=== PATIENT | female | born 1965 | race African-American/Black ===

== ENCOUNTER 2024-02-09 12:46 | Outpatient (REF) | payer BC, MEDICAID, SELFPAY ==
--- OUTSIDE RECORDS SUMMARY | 2024-02-09 12:58 | XMS_ITS | Continuity of Care Document ---
Author Organization [facility] ter Address [address] [place] [id number]- Care Team Providers Care Geotechnical Laboratory Technician Name Role Phone Brianne PERSON, Suresh Primary Care Physician Encounter [facility] [place] Date(s): 01/25/24 - 01/27/[address] [address]- Encounter Diagnosis Dizziness(Final) - 01/26/24 Discharge Disposition: A-D/C Home Attending Physician: Edinson Owens MD Admitting Physician: Melchor Salgado MD Referring Physician: Not on Staff, Referring MD Encounter Type: Disch Obv Allergies, Adverse Reactions, Alerts No Known Allergies Medications aspirin 81 mg oral delayed release tablet 81 mg, By Mouth, Daily, Refills 0, Maintenance, 01/27/24 8:52:00 AM EST, Partial fill upon patient request if the prescription is for a schedule II opioid drug. Start Date: 01/27/24 Status: Ordered Repeat number: 1 cloNIDine 0.1 mg oral tablet TAKE 1 TABLET BY MOUTH TWICE A DAY NEEDED FOR ANXIETY Start Date: 01/26/24 Status: Ordered Repeat number: 1 Compression Stockings See Instructions, # 2 pair, Refills 3, Tot. Refills 3, Maintenance, surgical, knee length 20-30 mm Hg, 01/05/17 9:52:28 AM EST, Compound Start Date: 01/05/17 Status: Ordered Quantity: 2.0 Unit: pair Repeat number: 4 Compression Stockings See Instructions, # 1 pair, Maintenance, rubber band surgical, thigh high length 20-30 mm Hg, 07/19/14 10:25:24 AM EDT, Compound Start Date: 07/19/14 Status: Ordered Quantity: 1.0 Unit: pair Repeat number: 1 Driminate 50 mg oral tablet CHEW 1 TABLET 4 TIMES A DAY IF NEEDED FOR DIZZINESS Start Date: 01/26/24 Status: Ordered Repeat number: 1 lisinopril 5 mg oral tablet TAKE 1 TABLET BY MOUTH 1 TIME EACH DAY. Start Date: 01/26/24 Status: Ordered Repeat number: 1 meclizine 25 mg oral tablet 1 tablet = 25 mg, By Mouth, 3 times a day, PRN for dizziness, # 30 tablet, 0 Refills, Maintenance, 01/27/24 8:51:00 AM EST, Tablet, Partial fill upon patient request if the prescription is for a schedule II opioid drug. Start Date: 01/27/24 Status: Ordered Quantity: 30.0 Unit: tablet Repeat number: 1 Motrin 800 mg oral tablet 1 tablet = 800 mg, By Mouth, 3 times a day, # 30 tablet, 0 Refills, Maintenance, 10/14/10 4:51:24 PMEDT, Tablet, [id number] Start Date: 10/14/10 Status: Ordered Quantity: 30.0 Unit: tablet Repeat number: 1 olanzapine 15 mg oral tablet TAKE 1 TABLET BY MOUTH EVERYDAY AT BEDTIME Start Date: 01/26/24 Status: Ordered Repeat number: 1 PT eval and treat for vestibular rehab PT eval and treat for vestibular rehab, See Instructions, # 1 each, Refills 0, Tot. Refills 0, Maintenance, PT eval and treat for vestibular rehab, 01/27/24 8:51:00 AM EST, Compound Start Date: 01/27/24 Status: Ordered Quantity: 1.0 Unit: each Repeat number: 1 sertraline 50 mg oral tablet TAKE 1 TABLET BY MOUTH ONCE A DAY TAKE 1-TAB DAILY BEGINNING ON 01/05/24 Start Date: 01/26/24 Status: Ordered Repeat number: 1 traZODone 50 mg oral tablet TAKE 1 TABLET BY MOUTH EVERY DAY Start Date: 01/26/24 Status: Ordered Repeat number: 1 Problem List Condition Confirmation Course Effective Dates Status Health [facility] Informant Anxiety Confirmed Active Depression Confirmed Active Dysmenorrhea Confirmed Active EDC 02/13/06 Confirmed Active Encounter for screening colonoscopy Confirmed Active Results Radiology Reports * Exam Date Time Procedure Performing Provider Status 01/27/24 5:20 AM MRI Brain W/O Contrast Earlene Crawley; Auth (Verified) Notes: (MRI Brain W/O Contrast) Reason For Exam: dizziness, dysmetria;Other: RESULT: MRI Brain W/O Contrast MRI Brain W/O Contrast INDICATION / CLINICAL QUESTION: dizziness, dysmetria; Clinical Question(s): Infarction; Order Comment: Please see Reference Text for complete list of contraindications Infarction TECHNIQUE: Sagittal T1, axial T2, axial FLAIR, axial gradient echo weighted images and axial diffusion weighted images. COMPARISON: CT of head on 01/25/2024 FINDINGS: The ventricles, cistern and sulci are within normal limits. No hydrocephalus is seen. There is no intracranial hemorrhage, tumor or acute infarct. There is a 5 mm area of hyperintense T2/FLAIR signals in the left posterior frontal white matter. Ill-defined patchy areas of subtly increased T2/FLAIR signals are seen in the periventricular white matters bilaterally. The findings are nonspecific. Differential diagnosis are extensive including demyelinating disease, chronic small vessel ischemic disease, infectious or inflammatory processes, etc. Please correlate clinically. Followup is suggested. There are normal flow voids in the major intracranial vessels. The visualized paranasal sinuses are clear. IMPRESSION: No acute pathology is seen in the brain parenchyma. Mild bilateral white matter disease is nonspecific. Differential diagnosis are extensive. Please correlate clinically. Followup is suggested. WSN: [id number] Ordering Physician: James Mclean Dictated By: Minh Perales MD Dictated Date/Time: 01/27/24 7:50 am Reviewed By: Minh Perales MD Signed By: Minh Perales MD Signed Date/Time: 01/27/24 7:50 am Transcribed By: MORENO Transcribed Date/Time: 01/27/24 7:50 am * Exam Date Time Procedure Performing Provider Status 01/25/24 9:[address] Angio Neck Sheyla Ellis [facility] (Verified) Notes: (CT Angio Neck) Reason For Exam: Aneurysm, neck vessel(s);Other: RESULT: CT Angio Neck CT Angio Head, CT Angio Neck Hx of Present Illness: 3 weeks of HOFFMAN diziness, bilat ear pain and intermittent blurred vision. Patient denies fevers, cough, endorsing congestion.; Reason: Other:; Neuro deficit, acute, stroke suspected; Clinical Question(s): Other:; Hematoma Aneurysm / Other: TECHNIQUE: CT angiogram of the head and neck was performed after bolus administration of intravenous contrast. 100 mL of Isovue 300 was administered intravenously. Coronal and sagittal MIP reformatted images were obtained. Additional 3-D images were created on a separate workstation under concurrent supervision by the attending radiologist. All stenoses are measured using NASCET criteria. Weight-based protocol using automatic tube modulation was used to optimize exposure parameters. RADIATION DOSE PARAMETERS: CTDIvol Body: 8.90 mGy, DLP Body: 443 mGy*cm. CTDIvol Head: 48.10 mGy, DLP Head: 773 mGy*cm. COMPARISON: Noncontrast CT head performed concurrently. FINDINGS: CTA OF THE NECK: Arch: There is a three vessel aortic arch. The origins of the supra aortic vessels are patent. Right carotid system: The common carotid and cervical internal carotid arteries are patent. No stenosis (0%) by NASCET criteria. Left carotid system: The left common carotid arteries are patent. There is soft plaque at the posterior margin of the left carotid bulb and proximal left ICA measuring up to 3 mm in thickness. No significant associated stenosis. Stenosis of the distal left ICA is estimated at 40% by NASCET criteria. There is a left-dominant vertebral artery system. Right vertebral: Patent. Left vertebral: Patent. Other: Soft tissues and bones: No evidence of lymphadenopathy or mass. A 9 mm left thyroid gland nodule isnoted, which falls below size criteria for thyroid sonography recommendation. Minimal dependent atelectasis. No acute bony abnormality. 8 mm sclerotic focus within the right side of C7 which probably represents a bone island. CTA OF THE HEAD: Anterior circulation: The intracranial internal carotid arteries are patent. Calcifications are present, and there is mild stenosis of the ophthalmic segment of the left ICA. Posterior communicating arteries are present. The ICA termini are maintained. The A1 and A2 segments of the anterior cerebral arteries are patent. The M1 segments of the middle cerebral arteries and M2 branch origins are patent. Posterior circulation: Bilateral intracranial vertebral arteries, the basilar artery, and bilateralsuperior cerebellar and posterior cerebral artery branches are patent. Near type right posterior cerebral artery. Veins: Major dural venous sinuses are patent. Other: Soft tissues and bones: No midline shift or effacement of the basal cisterns. No space-occupying hemorrhage. No acute territorial loss of fernandez-white matter differentiation. Orbits are unremarkable. No significant opacification in the paranasal sinuses or mastoid air cells. IMPRESSION: 1. No acute intracranial large vessel occlusion. 2. Atherosclerotic changes of the extracranial left ICA as described above. A preliminary report was issued to the emergency room by the [facility] service 01/25/2024 at 10:00 PM. WSN: [id number] Ordering Physician: James Mclean Dictated By: Star Tobias MD Dictated Date/Time: 01/26/24 12:01 p Reviewed By: Star Tobias MD Signed By: Star Tobias MD Signed Date/Time: 01/26/24 12:01 pm Transcribed By: MORENO Transcribed Date/Time: 01/26/24 10:55 am * Exam Date Time Procedure Performing Provider Status 01/25/24 9:[address] Angio Head Sheyla Ellis [facility] (Verified) Notes: (CT Angio Head) Reason For Exam: Neuro deficit, acute, stroke suspected;Other: RESULT: CT Angio Head CT Angio Head, CT Angio Neck Hx of Present Illness: 3 weeks of HOFFMAN diziness, bilat ear pain and intermittent blurred vision. Patient denies fevers, cough, endorsing congestion.; Reason: Other:; Neuro deficit, acute, stroke suspected; Clinical Question(s): Other:; Hematoma Aneurysm / Other: TECHNIQUE: CT angiogram of the head and neck was performed after bolus administration of intravenous contrast. 100 mL of Isovue 300 was administered intravenously. Coronal and sagittal MIP reformatted images were obtained. Additional 3-D images were created on a separate workstation under concurrent supervision by the attending radiologist. All stenoses are measured using NASCET criteria. Weight-based protocol using automatic tube modulation was used to optimize exposure parameters. RADIATION DOSE PARAMETERS: CTDIvol Body: 8.90 mGy, DLP Body: 443 mGy*cm. CTDIvol Head: 48.10 mGy, DLP Head: 773 mGy*cm. COMPARISON: Noncontrast CT head performed concurrently. FINDINGS: CTA OF THE NECK: Arch: There is a three vessel aortic arch. The origins of the supra aortic vessels are patent. Right carotid system: The common carotid and cervical internal carotid arteries are patent. No stenosis (0%) by NASCET criteria. Left carotid system: The left common carotid arteries are patent. There is soft plaque at the posterior margin of the left carotid bulb and proximal left ICA measuring up to 3 mm in thickness. No significant associated stenosis. Stenosis of the distal left ICA is estimated at 40% by NASCET criteria. There is a left-dominant vertebral artery system. Right vertebral: Patent. Left vertebral: Patent. Other: Soft tissues and bones: No evidence of lymphadenopathy or mass. A 9 mm left thyroid gland nodule isnoted, which falls below size criteria for thyroid sonography recommendation. Minimal dependent atelectasis. No acute bony abnormality. 8 mm sclerotic focus within the right side of C7 which probably represents a bone island. CTA OF THE HEAD: Anterior circulation: The intracranial internal carotid arteries are patent. Calcifications are present, and there is mild stenosis of the ophthalmic segment of the left ICA. Posterior communicating arteries are present. The ICA termini are maintained. The A1 and A2 segments of the anterior cerebral arteries are patent. The M1 segments of the middle cerebral arteries and M2 branch origins are patent. Posterior circulation: Bilateral intracranial vertebral arteries, the basilar artery, and bilateralsuperior cerebellar and posterior cerebral artery branches are patent. Near type right posterior cerebral artery. Veins: Major dural venous sinuses are patent. Other: Soft tissues and bones: No midline shift or effacement of the basal cisterns. No space-occupying hemorrhage. No acute territorial loss of fernandez-white matter differentiation. Orbits are unremarkable. No significant opacification in the paranasal sinuses or mastoid air cells. IMPRESSION: 1. No acute intracranial large vessel occlusion. 2. Atherosclerotic changes of the extracranial left ICA as described above. A preliminary report was issued to the emergency room by the [facility] service 01/25/2024 at 10:00 PM. WSN: [id number] Ordering Physician: James Mclean Dictated By: Star Tobias MD Dictated Date/Time: 01/26/24 12:01 p Reviewed By: Star Tobias MD Signed By: Star Tobias MD Signed Date/Time: 01/26/24 12:01 pm Transcribed By: MORENO Transcribed Date/Time: 01/26/24 10:55 am * Exam Date Time Procedure Performing Provider Status 01/25/24 9:[address] Head/Brain W/O Contrast Sheyla Ellis; Katja (Verified) Notes: (CT Head/Brain W/O Contrast) Reason For Exam: Neuro deficit, acute, stroke suspected;Other: RESULT: CT Head/Brain W/O Contrast CT Head/Brain W/O Contrast INDICATION: Hx of Present Illness: 3 weeks of HOFFMAN dizziness, bilat ear pain and intermittent blurredvision. Patient denies fevers, cough, endorsing congestion.; Reason: Other:; Neuro deficit, acute, stroke suspected; Clinical Question(s): Other:; Hematoma Infarction TECHNIQUE: Noncontrast head CT using axial technique and reconstructed in axial and coronal planes.Iterative reconstruction techniques are used to optimize dose and image quality. CTDIvol Body: 8.90 mGy, DLP Body: 443 mGy*cm. CTDIvol Head: 48.10 mGy, DLP Head: 773 mGy*cm. COMPARISON: CT head 09/04/2023 FINDINGS: Embroidery Cutter view findings, lines and tubes: None. BRAIN AND EXTRA-AXIAL SPACES: No parenchymal hemorrhage, midline shift, or mass effect. Fernandez-white matter differentiation is wellpreserved. No acute infarct. Negative insular ribbon sign. Atherosclerotic vascular calcification of the carotid arteries but negative hyperdense vessel sign. Ventricles, sulci, and basilar cisterns are normal. No white matter lesions. No subarachnoid hemorrhage. No subdural or epidural collection. CALVARIUM, SKULL BASE, AND SOFT TISSUES: No fractures or suspicious bony lesions. The paranasal sinuses and mastoid air cells are clear. Visualized orbits and globes are intact. The extracranial soft tissues are unremarkable. IMPRESSION: No acute intracranial pathology. I have personally reviewed the images and I agree with this report. WSN: [id number] Ordering Physician: James Mclean Dictated By: Cady Mello MD Dictated Date/Time: 01/25/24 10:01 p Reviewed By: Elvira Sexton MD Signed By: Elvira Sexton MD Signed Date/Time: 01/25/24 10:06 pm Transcribed By: MORENO Transcribed Date/Time: 01/25/24 9:50 pm Vital Signs Most recent to oldest [Reference Range]: 1 2 3 Height 158 cm (01/27/24 9:07 AM) 158 cm (01/27/24 3:44 AM) 158 cm (01/27/24 12:01 AM) Weight 59.5 kg (01/26/24 5:36 AM) 60 kg (01/25/24 10:17 PM) 60 kg (01/25/24 4:37 PM) Oxygen Saturation [94-100 %] 96 % (01/27/24 9:07 AM) 97 % (01/27/24 3:44 AM) 100 % (01/27/24 12:01 AM) Pulse Rate [55-90 bpm] 70 bpm (01/27/24 9:07 AM) 67 bpm (01/27/24 3:44 AM) 83 bpm (01/27/24 12:01 AM) Body Mass Index [18.5-24.99 kg/m2] 23.83 kg/m2 (01/26/24 5:36 AM) 24.03 kg/m2 (01/25/24 10:17 PM) 24.03 kg/m2 (01/25/24 4:37 PM) Blood Pressure [90-138/55-84 mm Hg] 92/63mm Hg (01/27/24 9:07 AM) 110/67mm Hg (01/27/24 3:44 AM) 106/74mm Hg (01/27/24 12:01 AM) Respiratory Rate [16-30 br/min] 19 br/min (01/27/24 9:07 AM) 18 br/min (01/27/24 3:44 AM) 18 br/min (01/27/24 12:01 AM) Temperature [96.8-100.4 DegF] 97.8 DegF (01/27/24 9:07 AM) 97.7 DegF (01/27/24 3:44 AM) 98.2 DegF (01/27/24 12:01 AM) Mode of Delivery (Oxygen) Room air (01/27/24 9:07 AM) Room air (01/27/24 3:44 AM) Room air (01/27/24 12:01 AM) Blood pressure sites Arm, left (01/27/24 9:07 AM) Arm, left (01/27/24 3:44 AM) Arm, left (01/27/24 12:01 AM) Temperature Route Oral (01/27/24 9:07 AM) Oral (01/27/24 3:44 AM) Oral (01/27/24 12:01 AM) Dry Weight 60 kg (01/25/24 10:17 PM) 60 kg (01/25/24 4:37 PM) Weight Obtained Via Standing scale (01/26/24 5:36 AM) Patient/family stated (01/25/24 4:37 PM) Dry Weight Obtained Via Patient/family s tated (01/25/24 4:37 PM) Social History Social History Type Response Smoking Status Never smoker entered on: 03/16/17 Sex Sex Representation Female (finding) Admission evaluation note * Russell PERSON, Dionte: PERFORM, MODIFY, MODIFY Event Display: Admission Note Authored Date: [id number] Patient: ??TALI DILLON ? Age:??58 Years?Sex:??Female?:??1965?? Chief Complaint/Reason for Consultation Persistent dizziness History of Present Illness 58-year-old female past medical history of lower extremity varicose veins, auditory hallucinations,anxiety, depression, presents to the ED today for several weeks of frontal headache, persistent dizziness, blurry vision. ?? Evaluated patient at bedside. ??Patient states that she had an episode like this couple of months ago however did not get evaluated.?? She denies history of BPPV, head trauma, dizziness exacerbation with movement or activity.?? Along with this she is complaining of blurry vision without visual losses which comes and goes.?? There is associated fullness sensation in her ears intermittently.?? In the ED patient found to have dysmetria based on abnormal [id number] test bilaterally - although exhibits mild, along with gait instability with tandem gait per previous provider, otherwise no otherfocal deficits.?? She states that she has had repeated episodes over the last several months however the current one has been lasting for about 2 to 3 weeks. ?? Condition patient was afebrile, blood pressure 140/88, saturation 97 on room air. CBC unremarkable, borderline hemoglobin 12.5, Coags workup normal. Electrolytes within normal range. TSH normal. ?? CT head without contrast was obtained which shows no acute intracranial pathology.?? Did show atherosclerotic vascular calcification of the carotid arteries but negative hyperdense vessel sign. ?? Patient is being admitted for??stroke rule out.?? Review of Systems A full review of systems was completed and is otherwise negative except as mentioned in history of present illness. Objective Measurements?? Height: 158 cm (01/25/24) Weight: 60 kg (01/25/24) Dry Weight: 60 kg (01/25/24) Body Mass Index: 24.03 kg/m2 (01/25/24) ? Vital Signs?? Temperature: 98.4 DegF (01/25/24 17:31:00) Temperature Route: Oral (01/25/24 17:31:00) Pulse Rate: 74 bpm (01/25/24 22:17:00) Pulse Rate, Lyin bpm (01/25/24 17:31:00) Systolic Blood Pressure, Lyin mm Hg (01/25/24 17:31:00) Diastolic Blood Pressure, Lyin mm Hg (01/25/24:31:00) Pulse Rate, Sittin bpm (01/25/24 17:31:00) Systolic Blood Pressure, Sittin mm Hg (01/25/24 17:31:00) Diastolic Blood Pressure, Sittin mm Hg (01/25/24:31:00) Pulse Rate, Standin bpm (01/25/24 17:31:00) Systolic Blood Pressure, Standin mm Hg (01/25/24 17:31:00) Diastolic Blood Pressure, Standin mm Hg (01/25/24 17:31:00) Respiratory Rate: 16 br/min (01/25/24 22:17:00) Systolic Blood Pressure:??155 mm Hg??High (01/25/24 22:17:00) Diastolic Blood Pressure:??99 mm Hg??High (01/25/24 22:17:00) Blood pressure sites: Arm, left (01/25/24 22:17:00) Mean Arterial Pressure: 118 mm Hg (01/25/24 22:17:00) Pulse Pressure: 56 mm Hg (01/25/24 22:17:00) Oxygen Saturation: 97 % (01/25/24 22:17:00) Mode of Delivery (Oxygen): Room air (01/25/24 22:17:00) Early Warning Score: 0 (01/26/24 00:29:26) ? Physical Exam Constitutional: Alert, in no distress. Mental Status: Oriented to person, place and time. Respiratory: Clear to auscultation. No wheezing,?? Cardiovascular: S1 S2 regular. No murmurs, Gastrointestinal: Abdomen soft, non-tender, non-distended.?? Genitourinary: No costovertebral angle tenderness. Neurologic: abnormal??finger nose test, otherwise no focal deficit Skin: No rashes or lesions. No petechiae or purpura.?? 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 Assessment:??58-year-old female past medical history of lower extremity varicose veins,??dysmenorrhea no longer on therapy,?auditory hallucinations, anxiety, depression, presents to the ED today for several weeks of frontal headache, persistent dizziness, blurry vision. Pt being admitted for stroke rule out.? Dizziness (R42) ?Associated with??Cerebellar dysmetria (R27.8) Stroke rule out ? Patient is providing??about 6 to 7 months of intermittent??dizziness Which has not worsened over the last couple of months, however this??recent episode lasting for about 2 to 3 weeks She endorses??bilateral tinnitus,??frontal headache, blurry visions??which are all intermittent. CT??head and neck without any acute pathology ?? Plan: N.P.o. till speech evaluation MRI brain without gadolinium conveyor monitor for now to rule out??cardiac arrhythmias Neurochecks every 4 hourly Follow-up on A1c and lipid panel Initiating aspirin 81 for now,??based on??further results??consider statin therapy Given no bleed on CT, will??proceed with DVT prophylaxis ?? Depression (F32.A) ?Associated with??Anxiety (F41.9),??Auditory hallucination (R44.0) ? Patient has an outpatient psychiatrist Venlafaxine was recently switched to sertraline no SI/HI ?? Plan Continue with home meds, which includes clonidine 0.1 Mg??twice daily as needed for anxiety, olanzapine 15 Mg daily at bedtime,??trazodone 50 Mg daily at bedtime for insomnia, sertraline 50 Mg daily MRI as mentioned above to make sure there is no other causes contributing towards auditory elucidation? Hypertension (I10):??Continue home lisinopril 5 Mg ?? VTE Prophylaxis:??lovenox ?VTE Prophylaxis Assessment:??VTE Prophylaxis Ordered ?? Discharge Planning:??1-2 day ?? Ongoing Medical Necessity:??MRI brain ?? Code Status:??Full ?Order Code Status:??Code Status Ordered ? Patient has been??seen and discussed with Dr. Galvez ?? Dr. Dionte Wells Internal Medicine PGY2 [employer] ?? Please note:??[employer] services were used to dictate??the above note.?I apologize in advance for any??typos and miscommunications.?? Please reach out to me??for clarification.? Histories Allergies Allergies ?(Active and Proposed Allergies Only) NKA? (Severity: Unknown severity, Onset: Unknown) ? Past Medical History/Problem List Active Problems(5) Anxiety Depression Dysmenorrhea Encounter for screening colonoscopy ??EDC ??02/13/06 ? Past Surgical History Colonoscopy: 07/14/18 ? Social History Tobacco Details:??Never smoker ? Family History Mother: Hypertension Father: Asthma ? Medications Home Medications Clonidine (cloNIDine 0.1 mg oral tablet)?TAKE 1 TABLET BY MOUTH TWICE A DAY NEEDED FOR ANXIETY DimenhyDRINATE (Driminate 50 mg oral tablet)?CHEW 1 TABLET 4 TIMES A DAY IF NEEDED FOR DIZZINESS Durable Medical Equipment (Compression Stockings)?See Instructions?rubber band surgical, thigh high length 20-30 mm Hg Durable Medical Equipment (Compression Stockings)?See Instructions?surgical, knee length 20-30 mm Hg Ibuprofen (Motrin 800 mg oral tablet)?1?tab(s)?800?Milligram?By Mouth?3 times a day Lisinopril (lisinopril 5 mg oral tablet)?TAKE 1 TABLET BY MOUTH 1 TIME EACH DAY. Meclizine (meclizine 25 mg oral tablet, chewable)?CHEW 1 TABLET (25 MG TOTAL) 3 (THREE) TIMES A DAY IF NEEDED FOR DIZZINESS. Olanzapine (olanzapine 15 mg oral tablet)?TAKE 1 TABLET BY MOUTH EVERYDAY AT BEDTIME Sertraline (sertraline 50 mg oral tablet)?TAKE 1 TABLET BY MOUTH ONCE A DAY TAKE 1-TAB DAILY BEGINNING ON 01/05/24 Trazodone (traZODone 50 mg oral tablet)?TAKE 1 TABLET BY MOUTH EVERY DAY ? Results Recent Labs BLOOD COUNT & DIFF WBC 5.5 k/mm3 ()?? 01/25/2024 17:13 RBC 4.46 m/mm3 ()?? 01/25/2024 17:13 Hgb 12.5 Gm/dL ()?? 01/25/2024 17:13 Hct 40.3 % ()?? 01/25/2024 17:13 MCV 90.4 femtoliters ()?? 01/25/2024 17:13 MCH 28.0 pg ()?? 01/25/2024 17:13 MCHC 31.0 Gm/dL (Low)?? 01/25/2024 17:13 Platelet Count 238 k/mm3 ()?? 01/25/2024 17:13 RDW-SD 41.6 femtoliters ()?? 01/25/2024 17:13 MPV 9.5 femtoliters ()?? 01/25/2024 17:13 Nucleated RBC (Automated) 0.0 #/100 WBC'S ()?? 01/25/2024 17:13 Abs. NRBC 0.0 k/mm3 ()?? 01/25/2024 17:13 Abs. Neut 2.9 k/mm3 ()?? 01/25/2024 17:13 Abs. Lymph 2.2 k/mm3 ()?? 01/25/2024 17:13 Abs. Williamson 0.4 k/mm3 ()?? 01/25/2024 17:13 Abs. Eo 0.1 k/mm3 ()?? 01/25/2024 17:13 Abs. Baso 0.0 k/mm3 ()?? 01/25/2024 17:13 Neut % 52.6 % ()?? 01/25/2024 17:13 Lymph % 39.5 % ()?? 01/25/2024 17:13 Williamson % 6.3 % ()?? 01/25/2024 17:13 Eos % 0.9 % ()?? 01/25/2024 17:13 Baso % 0.5 % ()?? 01/25/2024 17:13 Imm Gran 0.2 % ()?? 01/25/2024 17:13 Abs. Imm Gran 0.0 k/mm3 ()?? 01/25/2024 17:13 ?? CHEM GENERAL Sodium 142 mmol/L ()?? 01/25/2024 17:13 Potassium 3.8 mmol/L ()?? 01/25/2024 17:13 Chloride 108 mmol/L (High)?? 01/25/2024 17:13 Bicarbonate Level 21 mmol/L (Low)?? 01/25/2024 17:13 Anion Gap 13 ()?? 01/25/2024 17:13 Glucose Level 101 mg/dL (High)?? 01/25/2024 17:13 BUN 13 mg/dL ()?? 01/25/2024 17:13 Creatinine-Blood 0.54 mg/dL ()?? 01/25/2024 17:13 Estimated GFR Creatinine 107 ML/MIN/1.73 M2 ()?? 01/25/2024 17:13 Calcium 9.2 mg/dL ()?? 01/25/2024 17:13 ?? COAG INR 1.1 ()?? 01/25/2024 21:37 Protime (PT) 11.4 seconds ()?? 01/25/2024 21:37 APTT 30.2 seconds ()?? 01/25/2024 21:37 ?? ENDOCRINE/TUMOR MARKER TSH 0.88 uIU/mL ()?? 01/25/2024 21:37 ?? URINE OTHER Est Creatinine Clearance 91.76 mL/min ()?? 01/25/2024 18:35 ? * rCistino Galvez MD: PERFORM Event Display: Admission Note Authored Date: ??Attending Attestation: I have seen and evaluated this patient.?? I have discussed the case and its management with the resident and agree with the findings and rocky documented in the resident's note.?? I?? will continue to provide care to this patient till 7 AMof the admitting date.? 58-year-old female with a past medical history of anxiety, depression, hypertension came with a complaint of headache, dizziness and some blurred vision.?? CT of the head ruled out any acute abnormality.?? CT angiogram of head and neck official report pending.?? Neurology was consulted.?? Will get a MRI of the brain, lipid panel, HbA1c level.?? Lab workup is nondiagnostic.?? EKG is normal.?? On neuro examination cranial nerves II through XII normal.?? Plantar is normal.?? Power is normal. EKG study * Event Display: ECG 12-Lead Authored Date: Please click on pdf link to open report * Event Display: ECG 12-Lead Authored Date: Ventricular Rate: 76 BPM Atrial Rate: 76 BPM P-R Interval: 140 ms QRS Duration: 64 ms Q-T Interval: 386 ms QTC Calculation(Bazett): 434 ms P Narka: 37 degrees R Narka: 27 degrees T Narka: 10 degrees Normal sinus rhythm Normal ECG When compared with ECG of 04-Sep-2023 17:49, No significant change was found Confirmed by BRANDI CHUN MD ([id number]) on 01/26/2024 7:49:11 AM [place]: [facility]Department [facility] * Rocky Redman RN: PERFORM, SIGN, VERIFY Event Display: Progress [facility] Authored Date: Patient: TALI DILLON Age: 58 years Sex: Female : 1965 Associated Diagnoses: None Author: Rocky Redman RN Met patient in bed on taking over. A+O x 3. Denies pain, nausea, vomiting, or SOB. Complained of dizziness, was told to change positions slowly, awaiting MRI. Has telemonitor on as ordered. Neurological assessments done as ordered. Currently in bed, call leahy within reach, told to request assistance as needed, will continue to monitor. * Edinson Owens MD: PERFORM Event Display: Progress Note Hospital Authored Date: Patient: ??TALI DILLON ? Age:??58 Years?Sex:??Female?:??1965?? Subjective When I saw the patient she was ambulating with neurology Told me that she still feels dizzy. ??Denied any numbness, tingling or focal weakness.?? No nausea or vomiting.?? No fever or chills No chest pain, shortness of breath cough or wheezing Review of Systems All systems reviewed and negative except as above Objective Vital Signs?? Temperature: 97.6 DegF (01/26/24 10:21:00) Temperature Route: Oral (01/26/24 10:21:00) Pulse Rate: 80 bpm (01/26/24 10:21:00) Pulse Rate, Lyin bpm (01/25/24 17:31:00) Systolic Blood Pressure, Lyin mm Hg (01/25/24 17:31:00) Diastolic Blood Pressure, Lyin mm Hg (01/25/24 17:31:00) Pulse Rate, Sittin bpm (01/25/24 17:31:00) Systolic Blood Pressure, Sittin mm Hg (01/25/24 17:31:00) Diastolic Blood Pressure, Sittin mm Hg (01/25/24 17:31:00) Pulse Rate, Standin bpm (01/25/24 17:31:00) Systolic Blood Pressure, Standin mm Hg (01/25/24 17:31:00) Diastolic Blood Pressure, Standin mm Hg (01/25/24 17:31:00) Respiratory Rate: 20 br/min (01/26/24 10:21:00) Systolic Blood Pressure: 133 mm Hg (01/26/24 10:21:00) Diastolic Blood Pressure:??85 mm Hg??High (01/26/24 10:21:00) Blood pressure sites: Arm, left (01/26/24 10:21:00) Mean Arterial Pressure: 101 mm Hg (01/26/24 10:21:00) Pulse Pressure: 48 mm Hg (01/26/24 10:21:00) Oxygen Saturation: 98 % (01/26/24 10:21:00) Mode of Delivery (Oxygen): Room air (01/26/24 10:21:00) Early Warning Score: 2 (01/26/24 10::43) ? Physical Exam BASKET TURNER: AA0 3, no focal motor or sensory deficit, cranial nerves II to XII intact CVS: RRR, S1, S2, No gallop, murmur or rub Resp: b/l good air entry, no wheezing or rhales, CTA b/l GI: Soft, NT, ND, BS +ve EXT: no pedal edema Skin: no rash Neck: supple, ENMT: moist mucus membranes, nares patent with no discharge Musculoskeletal: no joint tenderness, swelling or limitation of movement ?? _ Inpatient Medications Medications (18) Active SCHEDULED: (7) Aspirin 81 mg EC Tablet (aspirin 81 mg oral delayed release tablet) ??81 mg, By Mouth, Daily Enoxaparin 40 mg Inj (Enoxaparin Inj) ??40 mg 0.4 mL, Subcutaneous Injection, Daily Lisinopril 5 mg Tablet (lisinopril 5 mg oral tablet) ??5 mg, By Mouth, Daily Meclizine 12.5 mg Tablet (meclizine 12.5 mg oral tablet) ??25 mg, By Mouth, 3 times a day NaCl 0.9% Flush 3ml (NaCL 0.9% Flush) ??3 mL, IV Push, Every 8 hours Olanzapine 7.5mg Tablet (Olanzapine) ??15 mg, By Mouth, Daily at bedtime Sertraline 50 mg Tablet (sertraline 50 mg oral tablet) ??50 mg, By Mouth, Daily CONTINUOUS: (0) PRN: (11) Acetaminophen 325 mg Tablet (Acetaminophen Tablet) ??650 mg, By Mouth, Every 4 hours Clonidine 0.1 mg Tablet (cloNIDine 0.1 mg oral tablet) ??0.1 mg, By Mouth, 2 times a day Dextromethorphan-Guaifenesin 20 mg-200 mg/10 mL Liqu UD (Robitussin DM Liquid) ??10 mL, By Mouth, Every 4 hours Docusate Sodium 100 mg Capsule (Docusate Sodium Capsule) ??100 mg 1 capsule, By Mouth, 2 times a day Meclizine 12.5 mg Tablet (meclizine 12.5 mg oral tablet) ??25 mg, By Mouth, 3 times a day Melatonin 3 mg Tablet (Melatonin Tablet) ??3 mg, By Mouth, Daily at bedtime NaCl 0.9% Flush 3ml (NaCL 0.9% Flush) ??3 mL, IV Push, Every 8 hours Polyethylene Glycol 17 Gm Powder (MiraLax Powder) ??17 Gm 1 pack/packet, By Mouth, Daily Senna Tablet ??8.6 mg 1 tablet, By Mouth, 2 times a day Simethicone 80 mg Chewable Tablet (Simethicone Tablet) ??80 mg, Chew, 3 times a day Trazodone 50 mg Tablet (traZODone 50 mg oral tablet) ??50 mg, By Mouth, Daily at bedtime ? Results Recent Labs BLOOD COUNT & DIFF WBC 5.5 k/mm3 ()?? 01/25/2024 17:13 RBC 4.46 m/mm3 ()?? 01/25/2024 17:13 Hgb 12.5 Gm/dL ()?? 01/25/2024 17:13 Hct 40.3 % ()?? 01/25/2024 17:13 MCV 90.4 femtoliters ()?? 01/25/2024 17:13 MCH 28.0 pg ()?? 01/25/2024 17:13 MCHC 31.0 Gm/dL (Low)?? 01/25/2024 17:13 Platelet Count 238 k/mm3 ()?? 01/25/2024 17:13 RDW-SD 41.6 femtoliters ()?? 01/25/2024 17:13 MPV 9.5 femtoliters ()?? 01/25/2024 17:13 Nucleated RBC (Automated) 0.0 #/100 WBC'S ()?? 01/25/2024 17:13 Abs. NRBC 0.0 k/mm3 ()?? 01/25/2024 17:13 Abs. Neut 2.9 k/mm3 ()?? 01/25/2024 17:13 Abs. Lymph 2.2 k/mm3 ()?? 01/25/2024 17:13 Abs. Williamson 0.4 k/mm3 ()?? 01/25/2024 17:13 Abs. Eo 0.1 k/mm3 ()?? 01/25/2024 17:13 Abs. Baso 0.0 k/mm3 ()?? 01/25/2024 17:13 Neut % 52.6 % ()?? 01/25/2024 17:13 Lymph % 39.5 % ()?? 01/25/2024 17:13 Williamson % 6.3 % ()?? 01/25/2024 17:13 Eos % 0.9 % ()?? 01/25/2024 17:13 Baso % 0.5 % ()?? 01/25/2024 17:13 Imm Gran 0.2 % ()?? 01/25/2024 17:13 Abs. Imm Gran 0.0 k/mm3 ()?? 01/25/2024 17:13 ?? CHEM GENERAL Sodium 142 mmol/L ()?? 01/25/2024 17:13 Potassium 3.8 mmol/L ()?? 01/25/2024 17:13 Chloride 108 mmol/L (High)?? 01/25/2024 17:13 Bicarbonate Level 21 mmol/L (Low)?? 01/25/2024 17:13 Anion Gap 13 ()?? 01/25/2024 17:13 Glucose Level 101 mg/dL (High)?? 01/25/2024 17:13 Hemoglobin A1C (Monitoring) 6.2 % (High)?? 01/25/2024 17:13 BUN 13 mg/dL ()?? 01/25/2024 17:13 Creatinine-Blood 0.54 mg/dL ()?? 01/25/2024 17:13 Estimated GFR Creatinine 107 ML/MIN/1.73 M2 ()?? 01/25/2024 17:13 Calcium 9.2 mg/dL ()?? 01/25/2024 17:13 ?? COAG INR 1.1 ()?? 01/25/2024 21:37 Protime (PT) 11.4 seconds ()?? 01/25/2024 21:37 APTT 30.2 seconds ()?? 01/25/2024 21:37 ?? ENDOCRINE/TUMOR MARKER TSH 0.88 uIU/mL ()?? 01/25/2024 21:37 ?? LIPID STUDIES Cholesterol 149 mg/dL ()?? 01/25/2024 17:13 Triglycerides 70 mg/dL ()?? 01/25/2024 17:13 HDL Cholesterol 37 mg/dL (Low)?? 01/25/2024 17:13 LDL Cholesterol 98 mg/dL ()?? 01/25/2024 17:13 Non HDL Cholesterol 112 mg/dL ()?? 01/25/2024 17:13 ?? URINE OTHER Est Creatinine Clearance 91.76 mL/min ()?? 01/25/2024 18:35 ? Assessment/Plan Assessment:??58-year-old female here with dizziness ?? Dizziness (R42):??Patient is providing??about 6 to 7 months of intermittent??dizziness Which has not worsened over the last couple of months, however this??recent episode lasting for about 2 to 3 weeks She endorses??bilateral tinnitus,??frontal headache, blurry visions??which are all intermittent. CT??head without any acute finding Follow-up for??CT head and neck result No headache or vision blurriness this morning Able to ambulate without any issues EKG without any acute change Aspirin Meclizine Hemoglobin A1c 6.2 LDL 98 Likely??peripheral vertigo Neurology on board MRI of the brain Telemetry Neurochecks Orthostatic vitals negative Monitor for recurrence of symptom ?? Prediabetes (R73.03):??A1c??6.2 suggesting prediabetes mellitus.??Lifestyle modification ?? Hypertension (I10):??Continue with lisinopril ?? Depression (F32.A) Anxiety (F41.9) ? Patient has an outpatient psychiatrist Venlafaxine was recently switched to sertraline Plan Continue with home meds, which includes clonidine 0.1 Mg??twice daily as needed for anxiety, olanzapine 15 Mg daily at bedtime,??trazodone 50 Mg daily at bedtime for insomnia, sertraline 50 Mg daily ?? VTE Prophylaxis:??SCD ?VTE Prophylaxis Assessment:??VTE Prophylaxis Ordered ?? Discharge Planning:? Estimated Discharge Date ? Consult note * Ananya Gannon NP: PERFORM Event Display: Consultation Note Authored Date: Patient: ??TALI DILLON ? Age:??58 Years?Sex:??Female?:??1965?? Chief Complaint/Reason for Consult Dizziness History of Present Illness Ms. Dillon, 58 y/o female with history of auditory hallucinations, anxiety, depression, LE varicose veins, presented to the ED on 01/24 for frontal headache, blurred vision and persistent??dizziness, seen by neurology for dizziness. ?? Patient is a difficult historian. Patient reports that she developed initial onset of dizziness, 2 mo ago. This started while she was sitting and watching TV.?? She describes the dizziness as a lightheaded feeling, says she feels like she is going to pass out. She reports feeling worse when she goes to sit/stand, feels better laying down. She says that she does not feel any room spinning sensation. She has not had any tinnitus but??has been hearing voices; hearing things about work and her family, also in the last two months. Of note, was seen in the ED for same in August/2023.?? In August she was started on Olanzapine, Trazodone,??Effexor. She early was started on sertraline and also clonidine. She also has been having trouble with insomnia and says that her trazodone has been increased. She has not had any diplopia, dysarthria or dysphagia, and no gait imbalance.?? She says that also in the last week developed frontal pressure like headache, associated??light, noise and smell sensitivity.??She has been having nausea but not vomiting. She denies previous h/o of headaches She has not had any fevers at home, reports recent sore throat and has been treated with 7 day course of amoxicillin. ?? Patient has been afebrile, SBPs initially in the??140s, now?? normotensive. Head CT and??CTA of head and neck unremarkable. ?? Review of Systems GEN: no fevers, no chills HEENT:??+ headaches, no vision changes, no ear drainage/pain, no tinnitus, no URI symptoms, no throat pain CV: no cp, no palpitations,+ ??lightheadedness RESP: no sob, no wheezing GI: no n/v/d : no dysuria/frequency/urgency MUSK: no joint pain, no muscle aches/pains DERM: no skin rashes, no bruising PSYCH:??h/o of??depression and anxiety, having auditory hallucinations NEURO: no vision changes, no speech changes, no change in swallow, no weakness, no sensory changes,no imbalance, no dizziness. Physical Exam Vitals & Measurements T:??97.6?F?? HR:??80??(Peripheral)?? RR:??20?? BP:??133/85?? SpO2:??98%?? HT:??158??cm?? WT:??59.5??kg?? BMI:??23.83? GENERAL APPERANCE: ??stated age HEENT:??nc/at NECK: supple, LUNGS: ??Normal I:E HEART: RRR ABD: soft, ND, NT. EXT: No clubbing, no edema SKIN: no obvious rashes NEURO:??awake and alert oriented to her name, age, place, mo, yr names well follows commands Cranial Nerves:?? Pupils: perrl Visual:??vff Extra ocular movements: Intact, no nystagmus Facial sensation:??intact b/l, no fd Hearing: intact bilaterally to finger rub Speech: clear, fluent, appropriate Tongue: Protrudes Midline Gag: soft palate raises equally Shoulder shru/5 Neck musculature: 5/5 Motor Exam: Strength:??5/5 in the b/l UeS and /bl LEs Sensory: sensation to light touch intact and equal bilaterally to face, bilateral upper extremities, and bilateral lower extremities, no extinction to dss Coordination: FTN intact, Mary symmetric, HNS smooth b/l, NO pronator drift Stance and Gait:??steady, negative Romberg, fukada testing negative ? (01/25/2024 21:[address] Head/Brain W/O Contrast) ?? IMPRESSION: ?? No acute intracranial pathology. ?? I have personally reviewed the images and I agree with this report. WSN: [id number] [1] ? (01/25/2024 21:[address] Angio Neck) IMPRESSION: ? 1. No acute intracranial large vessel occlusion. 2. Atherosclerotic changes of the extracranial left ICA as described above. ?? A preliminary report was issued to the emergency room by the ad service 01/25/2024 at 10:00 PM. ? WSN: [id number] [2] Assessment/Plan Discharge Planning:? 58-year-old female with history of anxiety depression and auditory hallucinations with recent addition to her chronic medications of sertraline and clonidine who now presents with report of dizzinessand headache of 1 week duration, she describes the dizziness as a lightheaded sensation worsened with positional changes especially sitting and standing, she feels better sitting down, she never had any neurological deficits and CT head and CTA of head and neck on presentation are unremarkable.?? Her neuroexam does not show any ataxia, forgot a testing negative, Romberg negative.?? She is very steady on her feet.?? She did have positive orthostatic blood pressures from lying to sitting.?? Do not suspect this is of neurological etiology although okay to confirm with brain MRI and consider holding clonidine to see if patient's symptoms improve. ?? frandy skaggs ?? Please call for any questions Neurology signing off. Problem List/Past Medical History Ongoing Anxiety Depression Dysmenorrhea Encounter for screening colonoscopy EDC 02/13/06 Procedure/Surgical History Colonoscopy: 07/14/18 Home Medications Clonidine: TAKE 1 TABLET BY MOUTH TWICE A DAY NEEDED FOR ANXIETY DimenhyDRINATE: CHEW 1 TABLET 4 TIMES A DAY IF NEEDED FOR DIZZINESS Durable Medical Equipment: See Instructions, rubber band surgical, thigh high length 20-30 mm Hg Durable Medical Equipment: See Instructions, surgical, knee length 20-30 mm Hg Ibuprofen: 800 mg = 1 tablet, By Mouth, 3 times a day Lisinopril: TAKE 1 TABLET BY MOUTH 1 TIME EACH DAY. Meclizine: CHEW 1 TABLET (25 MG TOTAL) 3 (THREE) TIMES A DAY IF NEEDED FOR DIZZINESS. Olanzapine: TAKE 1 TABLET BY MOUTH EVERYDAY AT BEDTIME Sertraline: TAKE 1 TABLET BY MOUTH ONCE A DAY TAKE 1-TAB DAILY BEGINNING ON 01/05/24 Trazodone: TAKE 1 TABLET BY MOUTH EVERY DAY Allergies NKA Social History Tobacco Never smoker Family History Mother: Hypertension Father: Asthma [1]??CT Head/Brain W/O Contrast; Carlie PERSON, [place] 01/25/2024 21:44 EST [2]??CT Angio Neck; Jatinder PERSON, Star 01/25/2024 21:44 EST * Gino PERSON, Mary Ellen: PERFORM Event Display: Consultation Note Authored Date: NEUROLOGY ATTENDING NOTE: Patient discussed with??SALES TRAINING REPRESENTATIVE Queenie Gannon.??I reviewed her note from today and agree with her assessment and plan. ?? Mary Ellen Christian MD, PhD Note * Roman PERSON, [facility]: PERFORM Event Display: Discharge/Transfer Note Hospital Authored Date: Patient: ??TALI DILLON ? Age:??58 Years?Sex:??Female?:??1965?? Patient Information Discharge Location: B Primary Care Physician: Brianne PERSON, [facility] Admit Date/Time: 01/25/2024 16:32 Discharge Disposition Discharge Disposition: ?? 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) Hypertension (I10) Depression (F32.A) Auditory hallucination (R44.0) Anxiety (F41.9) Dizziness ([id number]) _ Discharge Medications Aspirin (aspirin 81 mg oral delayed release tablet)?81?Milligram?By Mouth?Daily Clonidine (cloNIDine 0.1 mg oral tablet)?TAKE 1 TABLET BY MOUTH TWICE A DAY NEEDED FOR ANXIETY DimenhyDRINATE (Driminate 50 mg oral tablet)?CHEW 1 TABLET 4 TIMES A DAY IF NEEDED FOR DIZZINESS Durable Medical Equipment (Compression Stockings)?See Instructions?rubber band surgical, thigh high length 20-30 mm Hg Durable Medical Equipment (Compression Stockings)?See Instructions?surgical, knee length 20-30 mm Hg Ibuprofen (Motrin 800 mg oral tablet)?1?tab(s)?800?Milligram?By Mouth?3 times a day Lisinopril (lisinopril 5 mg oral tablet)?TAKE 1 TABLET BY MOUTH 1 TIME EACH DAY. Meclizine (meclizine 25 mg oral tablet)?1?tab(s)?25?Milligram?By Mouth?3 times a day?as needed?for dizziness Miscellaneous Rx (PT eval and treat for vestibular rehab)?See Instructions?PT eval and treat for vestibular rehab Olanzapine (olanzapine 15 mg oral tablet)?TAKE 1 TABLET BY MOUTH EVERYDAY AT BEDTIME Sertraline (sertraline 50 mg oral tablet)?TAKE 1 TABLET BY MOUTH ONCE A DAY TAKE 1-TAB DAILY BEGINNING ON 01/05/24 Trazodone (traZODone 50 mg oral tablet)?TAKE 1 TABLET BY MOUTH EVERY DAY ? Medications Started meclizine ASA? Medications Discontinued none Doses Changed none Allergies Allergies ?(Active and Proposed Allergies Only) NKA? (Severity: Unknown severity, Onset: Unknown) ? PCP Follow-Up/Heads-Up alternate of clonidine Start of statin for the finding of Stenosis of the distal left ICA is estimated at 40% by NASCET criteria. Hospital Course ??58-year-old female here with dizziness ?? Dizziness (R42):??Patient is providing??about 6 to 7 months of intermittent??dizziness Which has not worsened over the last couple of months, however this??recent episode lasting for about 2 to 3 weeks She endorses??bilateral tinnitus,??frontal headache, blurry visions??which are all intermittent. CT??head without any acute finding Follow-up for??CT head and neck result CTA head and neck as below IMPRESSION: ? 1. No acute intracranial large vessel occlusion.2. Atherosclerotic changes of the extracranial leftICA as described above. ? MRI no acute Patient ambulating??in ED treatment No focal deficit Neurology was consulted As discussed with neurology, patient was advised to follow-up with PCP/psychiatrist??for alternate of??clonidine Vestibular rehab prescription given to the patient Started??patient on aspirin Patient was advised to follow-up with PCP??for discussion regarding start of statin because of CTA finding Hemoglobin A1c 6.2 LDL 98 Likely??peripheral vertigo Neurology on board MRI of the brain Much better Orthostatic vitals negative ? Prediabetes (R73.03):??A1c??6.2 suggesting prediabetes mellitus.??Lifestyle modification ?? Hypertension (I10):??Continue with lisinopril ?? Depression (F32.A) Anxiety (F41.9) ? Patient has an outpatient psychiatrist Venlafaxine was recently switched to sertraline Plan Continue with home meds, which includes clonidine 0.1 Mg??twice daily as needed for anxiety, olanzapine 15 Mg daily at bedtime,??trazodone 50 Mg daily at bedtime for insomnia, sertraline 50 Mg daily ? Today feels better and ambulating. Having stable vitals. CTA BL, S1, S2 no GMR.Abd SOft, NT, BS+ve,AAO3. no pedal edema/focal deficit ?? Objective . Physical Exam Pending Results Add On Lab Order ordered on 01/26/2024 Hold Lavender Tube (BB) ordered on 01/25/2024 Patient Education Titles WebMD Ignite Patient Education - Dizziness (Uncertain Cause)?? Follow-Up Appointments Added Follow Up ?Time Frame ?Comments Please mantain adequate hydration and change position slowly Suresh Decker?1 to 2 weeks?for the follow upalternate of clonidinestart of statin for the finding of Stenosis of the distal left ICA is estimated at 40% by NASCET criteria. Post Discharge Care Discharge ?01/27/24 9:47:00 EST ?Order Comment:?? Discharge Prescriptions ?Written, 01/27/24 9:47:00 EST ?Order Comment:?? Home Health Face to Face ^HomeHealthFTF 34 ??minutes spent on discharge * Margaret Rae RN: PERFORM Event Display: Discharge/Transfer Note Hospital Authored Date: [id number] Nursing Discharge Note Entered On: 01/27/2024 10:47 EST Performed On: 01/27/2024 10:46 EST by Margaret Rae RN Nursing Discharge Note 2 Discharge Time : 01/27/2024 10:46 EST Discharge Level of Care at Discharge : Home/Half-Way/Foster Care Patient Left Unit Via : Wheelchair Patient Accompanied Off Unit with : Responsible adult DC Instructions Provided & Signed by Pt : Yes Patient Understands D/C Instructions : Yes Patient Instructions Discharge Signed : Yes Did Pt have Specialty Bed or Wound Vac : No Margaret Rae RN - 01/27/2024 10:46 EST * Janet Luna RN: PERFORM Event Display: Patient Education/Instruction Authored Date: [id number] Inpatient Adult Discharge Instructions. [address] [address] Name: TALI DILLON : 1965?? Visit: 01/25/2024 16:32?? Current Date: 01/27/2024 10:09 ?? Account: [id number]?? Inpatient Adult Discharge Instructions We would like to thank you for allowing us to assist you with your healthcare needs. The following includes patient education materials and information regarding your injury/illness. Our entire staffstrives to provide an excellent experience for our patients and their families. PLEASE ENSURE YOU FOLLOW-UP PER THE INSTRUCTIONS BELOW! ?? YOUR OPINION IS IMPORTANT TO US! Please complete the survey you may receive by mail or email. Your feedback will be used to make improvements to the healthcare experiences of our patients and their families. Surveys are administered by [employer] ?? If further treatment with your primary care physician or another doctor is recommended, it is important for you to keep the appointment. Call your primary care physician or return to the Emergency Department immediately if your condition worsens, fails to improve, or new symptoms develop. If you need to find a doctor, you can call [facility] Link for a referral at [phone] or toll free at [phone]) or log in to [email or web address] ?? [facility], in keeping with [facility] guidance, no longer requires face masks for staff, patientsor visitors in most situations. Similiar to time spent indoors at other locations, there is the chance that you were exposed to repiratory viruses during your time with us (such as flu or COVID-19). If you develop symptoms concerning for a viral respiratory infection, please seek testing (and treatment if indicated) from your medical provider or home test kit. ?? You can view and manage your care through the patient portal or by using a health care rupa of your choosing. [employer] is a website that allows you to securely view your medical information including your hospital discharge summary, office visit summaries, medications and follow-up visits. You can also request appointments, renew medications, and request access to your medical information using a health care rupa of your choosing, or just ask a question. You can enroll at [email or web address] or register during your next office visit. You have been discharged from [facility], Patient Care Unit: D3B??. If you have any questions regarding these instructions, including results of studies pending, afteryou leave, please call us and we will be happy to assist you 14/09. [facility] Your Care Team Attending Physician Edinson Owens MD?? Consulting Providers Edinson Owens MD?? Discharging Providers Edinson Owens MD Reason for Your Visit Dizziness?? Your Diagnosis Anxiety Auditory hallucination Cerebellar dysmetria Depression Dizziness Hypertension Prediabetes Tests Performed Below is a partial list of the tests performed during your hospitalization. You may have had other tests and procedures not included in this list. Please discuss all test results with your provider. Basic Metabolic Panel CBC w/ Differential HEMOGLOBIN A1C LIPID PANEL PT (INR) PTT TSH with T4 Reflex (Adults Only) CT Angio Head CT Angio Neck CT Head/Brain W/O Contrast MRI Brain W/O Contrast Add On Lab Order?? Basic Metabolic Panel?? CBC w/ Differential?? CT Angio Head?? CT Angio Neck?? CT Head/Brain W/O Contrast?? Hemoglobin A1C (Monitoring) (HEMOGLOBIN A1C)?? Hold Lavender Tube (BB)?? INR (PT (INR))?? Lipid Panel?? MRI Brain W/O Contrast?? PTT?? TSH with T4 Reflex (Adults Only)?? Primary Care Provider Suresh Decker MD? Advance Directive Health Care Proxy on File No Discharge Vitals Temperature: 97.8 DegF Height: 158 cm Pulse Rate: 70 bpm Weight: 59.5 kg Respiratory Rate: 19 br/min Body Mass Index: 23.83 kg/m2 Systolic Blood Pressure: 92 mm Hg Body surface area: 1.62 Diastolic Blood Pressure: 63 mm Hg ?? Oxygen Saturation: 96 % ?? Studies Pending All studies ordered during this hospital stay have been completed unless listed below. Please discuss all pending results with your provider listed above in these instructions. ?? Add On Lab Order?? Hold Lavender Tube (BB)?? What to do next Instructions From Your Doctor ?? Orders? 01/27/24 9:47:00 EST?? Prescriptions??, ??01/27/24 9:47:00 EST?? You Need to Schedule the Following Appointments Follow Up with??Please mantain adequate hydration and change position slowly Follow Up with??Suresh Decker When:??Within 1 to 2 weeks Why: for the follow up alternate of clonidine start of statin for the finding of Stenosis of the distal left ICA is estimated at 40% by NASCET criteria. Where: [address] [place] [address]- [facility] (1) Discharge Medications TALI DILLON :1965 Visit Date:01/25/2024 Medications: Please continue your medications until treatment is completed or stopped by your provider. Medications not listed below should be discontinued. Discuss any questions related to medications with your provider. What How Much When Instructions Next Dose New Aspirin (aspirin 81 mg oral delayed release tablet) 81 Milligram Oral Daily 01/27 New Miscellaneous Rx (PT eval and treat for vestibular rehab) See instructions PT eval and treat for vestibular rehab ?? Printed Prescription Changed Ibuprofen (Motrin 800 mg oral tablet) 1 tab(s) Oral 3 times a day as needed Changed Meclizine (meclizine 25 mg oral tablet) 1 tab(s) Oral 3 times a day as needed for for dizziness Printed Prescription as needed Unchanged Clonidine (cloNIDine 0.1 mg oral tablet) TAKE 1 TABLET BY MOUTH TWICE A DAY NEEDED FOR ANXIETY ?? as needed Unchanged DimenhyDRINATE (Driminate 50 mg oral tablet) CHEW 1 TABLET 4 TIMES A DAY IF NEEDED FOR DIZZINESS ?? as needed Unchanged Lisinopril (lisinopril 5 mg oral tablet) TAKE 1 TABLET BY MOUTH 1 TIME EACH DAY. ?? 01/27 Unchanged Olanzapine (olanzapine 15 mg oral tablet) TAKE 1 TABLET BY MOUTH EVERYDAY AT BEDTIME ?? 01/26 PM Unchanged Sertraline (sertraline 50 mg oral tablet) TAKE 1 TABLET BY MOUTH ONCE A DAY TAKE 1-TAB DAILY BEGINNING ON ?? 01/27 Unchanged Trazodone (traZODone 50 mg oral tablet) TAKE 1 TABLET BY MOUTH EVERY DAY ?? resume as prescribe ?? What How Much When Comments Stop Taking Acetaminophen/ Codeine (Tylenol with Codeine #3 300 mg-30 mg oral tablet) 1 tab(s) Oral Every 4 hours as needed for for pain Stop Taking Ethinyl Estradiol / Norethindrone (Microgestin / 20 20 mcg-1 mg oral tablet) 1 tab(s) Oral Daily Stop Taking Lorazepam (Ativan 0.5 mg oral tablet) 1 tab(s) Oral 3 times a day as needed for for anxiety Stop Taking Mefenamic Acid (mefenamic acid 250 mg oral capsule) 2 capsule Oral Every 6 hours as needed for for menstrual pain Duration: 3 Days Stop Taking Mefenamic Acid (Ponstel 250 mg oral capsule) 1 capsule Oral Every 4 hours as needed for for menstrual pain Take 2 pills for first dose (500mg total) and then take 1 pill as needed every 4-6hours. Start pills 1-2 days prior to onset of cramping. ?? Stop Taking Multivitamin, (Natachew) 1 tab(s) Chew Daily Duration: 90 Days Stop Taking Nitrofurantoin (Macrobid macrocrystals-monohydrate 100 mg oral capsule) 100 Milligram Oral Twice a day Duration: 7 Days Stop Taking PEG Electrolyte Solution (NuLYTELY with Flavor Packs oral powder for reconstitution) See instructions 240 mL By Mouth Every 15 minutes ?? Prescription Given During Visit Meclizine (meclizine 25 mg oral tablet) - 1 tablet = 25 mg, By Mouth, 3 times a day, # 30 tablet, 0Refills?? Miscellaneous Rx (PT eval and treat for vestibular rehab) - , # 1 each, 0 Refills, PT eval and treat for vestibular rehab?? Laboratory Results Below is a partial list of the most recent Laboratory test results done prior to this discharge. You may have had other tests and procedures not included in this list. Please discuss all test resultswith your provider. Est Creatinine Clearance - 91.76 mL/min (01/25/2024) Basic Metabolic Panel (01/25/2024) ???Sodium - 142 mmol/L???Potassium - 3.8 mmol/L???Chloride - 108 mmol/L???Bicarbonate Level - 21 mmol/L???Anion Gap - 13???Glucose Level - 101 mg/dL???BUN - 13 mg/dL???Creatinine-Blood - 0.54 mg/dL???Estimated GFR Creatinine - 107 ML/MIN/1.73 M2???Calcium - 9.2 mg/dL CBC w/ Differential (01/25/2024) ???WBC - 5.5 k/mm3???RBC - 4.46 m/mm3???Hgb - 12.5 Gm/dL???Hct - 40.3 %???MCV - 90.4 femtoliters???MCH - 28.0 pg???MCHC - 31.0 Gm/dL???Platelet Count - 238 k/mm3???RDW-SD - 41.6 femtoliters???MPV - 9.5 femtoliters???Nucleated RBC (Automated) - 0.0 #/100 WBC'S???Abs. NRBC - 0.0 k/mm3???Abs. Neut - 2.9 k/mm3???Abs. Lymph - 2.2 k/mm3???Abs. Williamson - 0.4 k/mm3???Abs. Eo - 0.1 k/mm3???Abs. Baso - 0.0 k/mm3???Neut % - 52.6 %???Lymph % - 39.5 %???Williamson % - 6.3 %???Eos % - 0.9 %???Baso % - 0.5 %???Imm Gran - 0.2 %???Abs. Imm Gran - 0.0 k/mm3 HEMOGLOBIN A1C (01/25/2024) ???Hemoglobin A1C (Monitoring) - 6.2 % LIPID PANEL (01/25/2024) ???Cholesterol - 149 mg/dL???Triglycerides - 70 mg/dL???HDL Cholesterol - 37 mg/dL???LDL Cholesterol - 98 mg/dL???Non HDL Cholesterol - 112 mg/dL PT (INR) (01/25/2024) ???INR - 1.1???Protime (PT) - 11.4 seconds PTT (01/25/2024) ???APTT - 30.2 seconds TSH with T4 Reflex (Adults Only) (01/25/2024) ???TSH - 0.88 uIU/mL You will be contacted within 72 hours with your results. Allergies (NKA means No Known Allergies) NKA Problems Active Problems??(5) Anxiety?? Depression?? Dysmenorrhea?? Encounter for screening colonoscopy?EDC ??02/13/06?? Education Materials Below is the list of Educational Leaflet Providered with your Discharge Instructions. Web[employer] Ignite Patient Education - Dizziness (Uncertain Cause)?? Valuables and Belongings I fully understand and agree that [facility] accepts no responsibility for all my personal property including clothing, toilet articles, radios, jewelry, dentures, hearing aids, rings, money, or any other property that is in my possession or is brought to me after admission. I understand certain valuables may be placed in a hospital safe for a short period of time. I understand that the hospital is not liable for loss or damage due to accident, fire, or other natural occurrence while said property is in the safe. I accept full responsibility for any personal property that I keep with me, and will not hold the hospital responsible in case of loss or disappearance. I acknowledge that i have been encouraged to send valuables and belongings home. ?? Review of Valuable and Belonging List: With patient Date for Pt to Sign Valuables/Belongings: 01/26/24 05:41:00 ?? Other Discharge Information ? Pulmonary Rehab Status?? Pulmonary Rehab Discharge Status?? Respiratory Rate: 19 br/min ? Common Emergency Awareness Tips IS IT A STROKE? Act FAST and Check for these signs: FACE Does the face look uneven? ARM Does one arm drift down? SPEECH Does their speech sound strange? TIME Call at any sign of stroke ?? Heart Attack Signs Chest discomfort: Most heart attacks involve discomfort in the center of the chest and lasts more than a few minutes, or goes away and comes back. It can feel like uncomfortable pressure, squeezing, fullness or pain. Discomfort in upper body: Symptoms can include pain or discomfort in one or both arms, back, neck, jaw or stomach. Shortness of breath: With or without discomfort. Other signs: Breaking out in a cold sweat, nausea, or lightheaded. Remember, MINUTES DO MATTER. If you experience any of these heart attack warning signs, call to get immediate medical attention! ?? Smoking can increase your chances of developing chronic health problems and can cause harmful effects to other family members in your house. If you smoke, you are strongly encouraged to quit. Please call [facility] Link at [phone] or [phone]-[employer] ([phone]) or log in to [email or web address] for referrals to smoking cessation programs. ?? 988 Suicide & Crisis Lifeline is available 14/09 if you or someone you know needs to find a reason to keep living. By calling 988 you'll be connected to a skilled, trained counselor at a crisis center in your area. INPATIENT DISCHARGE INSTRUCTIONS SIGNATURE PAGE TALI DILLON Location:[facility] Registration Date and Time:01/25/2024 16:32 EST Primary Care Physician: Brianne PERSON, Suresh, Attending Physician: Edinson Owens MD, I TALI DILLON, have received the above patient education materials/instructions and have verbalized understanding. If ambulance or transport services are being used I further acknowledge being given a choice of service. ?? If you need to contact me, please call me at this number: . Patient/Manager It Training Name: Patient/Manager It Training Signature: Relationship to Patient: Witness Name/Signature: Date: * Edinson Owens MD: PERFORM, SIGN, VERIFY Event Display: Patient Education Handout Authored Date: * Edinson Owens MD: PERFORM Event Display: Patient Education Leaflets Authored Date: Dizziness (Uncertain Cause) ?? [id number] Dizziness (Uncertain Cause) Dizziness is a common symptom. It may be described as a feeling of light- headedness, spinning, or feeling like you are going to faint. Dizziness can have many causes. Tell the healthcare provider about: ??? All medicines you take. This includes prescription and lcae-ruo-meuvtko medicines, herbs, and supplements. And tell your healthcare provider about any change in your medicines. ??? Any other symptoms you have ??? Any health problems you are being treated for ??? Any past major health problems you've had, such as a heart attack, balance issues, hearing problems, stiffness in the neck and shoulders, or blood pressure problems ??? Anything that causes the dizziness to get worse or better ??? Any recent head trauma, neck injury, or history of migraine ??? Whether the dizziness came on all at once or was gradual ??? Whether a dizziness episode occurs in a particular position of your head or posture Sometimes the exact cause for your dizziness cannot be found right away .??Other tests may be needed. Follow your healthcare provider's instructions. Home care ??? Dizziness that occurs with sudden standing may be a sign of mild dehydration. Drink extra fluids for the next few days. If you tend to get dizzy whenever you stand up from a sitting or lying (reclining) position: o Avoid sudden changes in posture. o Get up from a lying position slowly, and stay seated for a few moments before standing. o When standing, make sure you have something to hold on to. ??? If you recently started a new medicine, stopped a medicine, or had the dose of a current medicine changed,??talk with the prescribing healthcare provider. Your medicine plan may needadjustment. ??? If dizziness lasts more than a few seconds, sit or lie down until it passes. This may help prevent injury in case you pass out. Get up slowly when you feel better. ??? You may need a cane or other walking aids to avoid falling if you get dizzy. ??? Discuss your daily intake of caffeine, alcohol, and tobacco with your healthcare provider. ??? Don't drive or use power tools or dangerous equipment until you have had no dizziness for at least 48 hours. ?? Follow-up care Follow up with your healthcare provider for further evaluation in the next 7 days, or as advised. ?? When to get medical advice Call your healthcare provider for any of the following: ??? Worsening of symptoms or new symptoms ??? Repeated vomiting ??? Headache ??? Vision or hearing changes Call 911 Call 911, right away if any of these occur: ??? Sudden severe headache or chest, arm, neck, back, or jaw pain ??? Numbness or weakness of an arm or leg or one side of the face ??? Vomit or stool that's black or red ??? Shortness of breath ??? Feeling that your heart is fluttering or beating fast orhard (palpitations) ??? Passing out or seizure ??? Trouble walking or speaking ?? Last Reviewed Date: 2023 ?? 0166-2420 [employer]. All rights reserved. This information is not intended as a substitute for professional medical care. Always follow your healthcare professional's instructions. ?? Patient Care team information Care Team Personnel Name: Brianne PERSON, Suresh Position: Reference Physician Member Role: PCP Address: [address] [place] [address] Medical Group [address] Telecom: Care Team Related Persons Name: SHAYAN DEL RIO Insurance Providers Guarantor name: TALI DILLON Health Plan Information #: 3 Payer: [facility] Member Number: [id number] Policy Number: NA Group Number: NA Health Plan Information #: 2 Payer: NA Member Number: [id number] Policy Number: NA Group Number: NA Health Plan Information #: 1 Payer: HMO [employer] NET[employer] Member Number: [id number] Policy Number: NA Group Number: [id number]
[2024-02-09 15:01] LABS: Erythrocyte Sedimentation Rate 8 MM/HR (0-20)
[2024-02-10 20:09] LABS: Lyme Abs Screen <0.90 index
== END 2024-02-09 12:47 | disposition home or self-care (01) ==
LOC: HO.LAB 12:46
PROVIDERS: PCP Internal Medicine; Visit Provider Psychiatry & Neurology Neurology
DX: G43.909 Migraine, unspecified, not intractable, without status migrainosus (principal)
CPT/HCPCS: 36415; 85652; 86617; 86618

== ENCOUNTER 2024-09-25 15:33 | Outpatient (AMB) | payer BC, MEDICAID, SELFPAY ==
--- OUTSIDE RECORDS SUMMARY | 2024-09-25 15:36 | XMS_ITS | Clinical Summary ---
Author Organization [facility] Address [address] [place] [address] Care Team Providers Care Musical Therapist Name Role Phone Unavailable Primary Care Provider Unavailabl e Source Comments PLEASE NOTE, if this patient is a minor, it may be UNLAWFUL to discuss sensitive information that is contained in these records (such as FAMILY PLANNING, MENTAL HEALTH or SUBSTANCE ABUSE) with the minor patient's parent or other person without the patient's specific authorization.[facility] Medications No known medications Active Problems No known active problems Social History Tobacco Use Types Packs/Day Years Used Date Smoking Tobacco: Never Smokeless Tobacco: Never Tobacco Cessation:Counseling Given: Not Answered Social Connections Answer Date Recorded Connectedness 0 11/05/2023 Financial Resource Strain Answer Date R ecorded Financial Resource Strain 0 2023 Stress Answer Date Recorded Stress 0 09/28/2023 Physical Activity Answer Date Recorded Physical Activity 0 09/28/2023 Food Insecurity Answer Date Recorded Food 0 11/18/2023 Transportation Needs Answer Date Record ed Transportation 0 09/28/2023 Housing Stability Answer Date Recorded Housing 0 09/28/2023 Safety and Environment Answer Date Rachid rded Safety 0 09/28/2023 Utilities Answer Date Recorded Utilities 0 09/28/2023 Employment Answer Date Recorded Stress 0 11/05/2023 Comments Unknown Sex and Gender Information Value Date Recorded Sex Assigned at Not on file Legal Sex Female 11:36 AM PDT Gender Identity Not on file Sexual Orientation Not on file Last Filed Vital Signs Vital Sign Reading Time Taken Comments Blood Pressure 113/75 01/28/2024 1:27 PM EST Pulse 67 01/28/2024 1:27 PM EST Temperature - - Respiratory Rate - - Oxygen Saturation - - Inhaled Oxygen Concentration - - Weight - - Height - - Body Mass Index - - Plan of Treatment Upcoming Encounters Date Type Department Care Team (Late st Contact Info) Description 10/06/2024 3:00 PM EDT Office Visit [address] [phone] Alejandra Lawrence [address] [place] [address] Health Maintenance Due Date Last Done Comments Anxiety Screening 1965 Dental Perio Charting 1965 HPV Screening 1965 Hepatitis C Screening 1965 Lipid Screening 1966 Pap + HPV 1966 HIV Screening 1981 Imm-Hepatitis B (1 of 3 - 19 + 3-dose series) 1985 Breast Cancer Screening (Mammogram) 2006 CT Colonography 04/26/2011 Colonoscopy 04/26/2011 Colorectal Cancer Screening 04/26/2011 FIT/gFOBT 04/26/2011 Fecal DNA 04/26/2011 Flexible Sigmoidoscopy 04/26/2011 Cervical Cancer Screening 07/08/2012 Pap Smear 07/08/2012 07/08/2009 Imm-Pneumococcal 50+ (1 of 1 - PCV) 2016 Imm-Zoster, Recombinant (1 of 2) 2016 [id number] (1 - 2023- season) 2023 Alcohol and Drug Screen 02/23/2024 Depression Annual Screen 02/23/2024 Imm-Influenza (#1) 2024 Hypertension Screening (#1) 01/27/2025 Tobacco Screening 01/27/2025 01/28/2024 Dental Prophy 01/28/2025 01/27/2024, 01/06/2024 Diabetes Screening 01/13/2027 01/14/2024 Imm-DTaP/Tdap/Td (2 - Td or Tdap) 04/21/2033 024 Cervical Ablation/Cold-Knife Conization Discontinued Cervical Cryotherapy Discontinued Colposcopy Discontinued Endometrial Biopsy Discontinued Excision/Leep Discontinued HPV Genotyping Discontinued Vaginal Pap Discontinued Vulvoscopy Discontinued Procedures Procedure Name Priority Date/Time Associated Diagnosis Comments Full PROPHYLAXIS - ADULT Routine 01/27/2024 3:00 PM EST Encounter for dental examination from Last 3 Months or Most Recently Relevant to Health Maintenance Insurance [employer]
--- OUTSIDE RECORDS SUMMARY | 2024-09-25 15:36 | XMS_ITS | Clinical Summary ---
Author Organization [facility] Address [address] [place] [address] Phone Care Team Providers Care Tug Master Name Role Phone Suresh Decker MD Primary Care Provider [phone] Allergies No known active allergies Medications cholecalciferol , vitamin D3, (VITAMIN D3) 10 mcg (400 unit) capsule Take by mouth. Activ e cloNIDine HCL (CATAPRES) 0.1 MG tablet Take 0.1 mg by mouth 2 (two) times a day as needed. 4 Active dimenhyDRINATE 50 mg Chew Take 1 tablet by mouth. 4 Active DRIMINATE 50 mg tablet CHEW 1 TABLET 4 TIMES A DAY IF NEEDED FOR DIZZINESS 4 Active ibuprofen (ADVIL,MOTRIN) 600 MG tablet TAKE 1 TABLET BY MOUTH THREE TIMES A DAY NEEDED FOR PAIN OR FEVER MAX 2400 MG/DAY 4 Active lisinopril (PRINIVIL,ZESTR IL) 5 MG tablet Take 5 mg by mouth. 4 Active OLANZapine (ZYPREXA) 15 MG tablet Take 15 mg by mouth. 4 Active ondansetron (ZOFRAN) 4 MG tablet Take 4 mg by mouth. 4 Active sertraline (ZOLOFT) 50 MG tablet TAKE 1 TABLET BY MOUTH ONCE A DAY TAKE 1-TAB DAILY BEGINNING ON 01/05/24 4 Active sertraline (ZOLOFT) 25 MG tablet TAKE 1 TABLET BY MOUTH ONCE A DAY TAKE ONE TAB DAILY X 7 DAYS Active traZODone (DESYREL) 50 MG tablet Take 50 mg by mouth. Active Active Problems Problem Noted Date Diagnosed Date Dysmenorrhea 01/09/2024 Seasonal allergies 11/13/2021 Social History Tobacco Use Types Packs/Day Years Used Date Smoking Tobacco: Never Smokeless Tobacco: Never Tobacco Cessation:Counseling Given: Not Answered Education Answer Date Recorded Are you interested in more education? Not on cristina e 01/21/2024 Are you concerned about learning? Not on file 01/21/2024 No 01/21/2024 No 01/21/2024 Digital Access Answer Date Recorded No 01/21/2024 No 01/21/2024 Reliable internet access at home? Not on file 01/21/2024 Device with a working camera? Not on file Comments Unknown Sex and Gender Information Value Date Recorded Sex Assigned at Female 01/21/2024 11:07 AM EST Legal Sex Female 7:18 PM EST Gender Identity Female 01/21/2024 11:07 AM EST Sexual Orientation Straight 01/21/2024 11 :07 AM EST Plan of Treatment Health Maintenance Due Date Last Done Comments Adult Td,Tdap Booster 1966 LIPID PANEL 1966 DEPRESSION SCREENING 1978 HEPATITIS C SCREENING 1984 HIV ONE-TIME SCREENING (18-6 5 YEARS) 1984 PAP SMEAR 04/26/1987 MAMMOGRAM 2006 COLOGUARD 04/26/2011 COLONOSCOPY 04/26/2011 COLORECTAL CANCER SCREENING 04/26/2011 FIT TEST 04/26/2011 FOBT 04/26/2011 SIGMOIDOSCOPY 04/26/2011 VIRTUAL COLONOSCOPY 04/26/2011 PNEUMOCOCCAL VACCINES (50+ y ears) (1 of 1 - PCV) 2016 ZOSTER VACCINES (1 of 2) 2016 COVID-19 VACCINE (2023-2 5 season) 2023 SMOKING STATUS SCREENING (On ce After 26 Yrs) Completed 01/24/2024 HEPATITIS A VACCINES Aged Out No long er eligible based on patient's age to complete this topic HIB VACCINES Aged Out No longer eligi ble based on patient's age to complete this topic MENINGOCOCCAL VACCINES (ACWY) Aged Out No longer eligible based on patient's age to complete this topic MENINGOCOCCAL VACCINES (B) Aged Out N o longer eligible based on patient's age to complete this topic Medical Devices Not on file Insurance [facility] Stayful [facility] PARTIAL [facility] HEALTH SAFETY NET PARTIAL Member Subscriber Plan / Payer (Ef fective 2024-Present) Name:Mallika Haas Relation to Subscriber:Self Name:Mallika Haas Payer ID:Not on file Group ID:Not on file Type:Medicaid Address: [place] [id number] HEALTH SAF[employer]Y NET PARTIAL Member Subscriber Plan / Payer (Ef fective 2024-) Name:Mallika Haas Relation to Subscriber:Self Name:Mallika Haas Payer ID:Not on file Group ID:Not on file Type:Medicaid Address: [place] [id number] [employer] SAFETY NET PARTIAL HEALTH SAF[employer]Y NET [place] [address] [facility] SAFETY NET PARTIAL Care Teams Tug Master Relationship Specialty Start Date End Date Suresh Decker MD [address] [place] [id number] PCP - General Internal Medicine 01/21/24 Additional Source Comments The information contained in this document represents components of the legal health record. It is not the complete legal health record.[facility]
--- OUTSIDE RECORDS SUMMARY | 2024-09-25 15:36 | XMS_ITS ---
Author Name [facility] Organization Unknown Care Team Organization Name Specialty Phone Email Start Date End Da te [facility] Suresh Deckre Primary Care 11/25/20222023
--- OUTSIDE RECORDS SUMMARY | 2024-09-25 15:36 | XMS_ITS | Clinical Summary ---
Author Organization [place] [address] Gabo jacobson [facility] Building Address [address] [place] [address] Phone Care Team Providers Care Graphic Artist Name Role Phone Suresh Decker MD Primary Care Provider [phone] Allergies Active Allergy Reactions Criticality Noted Date Comments Pollen Extracts 09/13/2024 Medications héctor.stockin g,thigh,reg,med misc See Instructions, # 2 pair, Refills 3, Tot. Refills 3, Maintenance, surgical, knee length 20-30 mm Hg, 01/05/17 9:52:28, Compound 7 Active cholecalciferol (VITAMIN D-3) 10 mcg (400 unit) capsule Take by mouth. A ctive OLANZapine (ZyPREXA) 15 mg tablet Take 1 tablet (15 mg total) by mouth at bedtime. 4 Active venlafaxine XR (EFFEXOR-XR) 37.5 mg 24 hr capsule 5 Active SUMAtriptan (IMITREX) 50 mg tabletIndicatio ns:Other migraine without status migrainosus, not intractable Take 1 tablet (50 mg total) by mouth 1 (one) time if needed for migraine. May repeat dose once in 2 hours if no relief. Do not exceed 2 doses in 24 hours. 9 tablet 5 Active colchicine (COLCRYS) 0.6 mg tablet Take 1 tablet (0.6 mg total) by mouth 1 (one) time each day. 5 Active cephalexin (KEFLEX) 500 mg capsule Take 1 capsule (500 mg total) by mouth 2 (two) times a day for 7 days. 14 each 5 09/28/19 25 Active ibuprofen (ADVIL,MOTRIN) 600 mg tablet Take 1 tablet (600 mg total) by mouth every 8 (eight) hours if needed for mild pain (pain) for up to 10 days. 30 tablet 5 10/01/19 25 Active topiramate (TOPAMAX) 50 mg tablet Take 1 tablet (50 mg total) by mouth 1 (one) time each day. for 90 days 4 09/14/19 25 Discontin ued(Thera py completed ) propranoloL (INDERAL) 20 mg tablet Take 1 tablet (20 mg total) by mouth 1 (one) time each day. for 30 days 5 09/14/19 25 Discontin ued(Thera py completed ) verapamiL (CALAN) 40 mg tablet Take 1 tablet (40 mg total) by mouth 2 (two) times a day. 5 09/14/19 25 Discontin ued(Thera py completed ) amitriptyline (ELAVIL) 25 mg tablet Take 1 tablet (25 mg total) by mouth. at bedtime for 30 days 5 09/14/19 25 Discontin ued(Thera py completed ) fluticasone propionate (FLONASE) 50 mcg/actuation nasal spray Administer 2 sprays into each nostril 1 (one) time each day. Shake gently. Before first use, prime pump. After use, clean tip and replace cap. 16 g 5 09/14/19 25 Discontin ued(Thera py completed ) Active Problems Problem Noted Date Diagnosed Date Hyperthyroidism 04/07/2024 Anxiety 02/10/2024 Depression 02/10/2024 Screening for condition 01/09/2024 Dysmenorrhea 01/09/2024 01/09/2024 Seasonal allergies 11/13/2021 Encounters Date Type Department Care Team Description 09/20/2024 4:00 PM EDT Office Visit Walk-In Clinic [address] [phone] Mary Hale NP Cellulitis of upper extremity, unspecified laterality (Primary Dx) 09/13/2024 2:30 PM EDT Office Visit Internal Medicine - [address] [phone] Ese Guerrier NP Bilateral hand pain (Primary Dx) 08/15/2024 Telephone Internal Medicine - [address] [phone] Suresh Decker MD Referral (External -urology) 08/04/2024 3:57 PM EDT - 08/04/2024 11:59 PM EDT Hospital Encounter Xray - [address] [phone] Wheezing; SOB (shortness of breath) Discharge Disposition: Home or Self Care 08/04/2024 3:45 PM EDT Office Visit Internal Medicine - [address] [phone] Vandana Guzman NP Sinus headache (Primary Dx); Wheezing; Facial pain; SOB (shortness of breath); Frequent UTI 07/01/2024 1:00 PM EDT - 07/01/2024 11:59 PM EDT Hospital Encounter Radiology Department - [address] [phone] Encounter for screening mammogram for breast cancer Discharge Disposition: Home or Self Care 06/30/2024 Telephone Pediatrics - [address] [phone] Suresh Decker MD Rectal Bleeding from Last 3 Months Immunizations Name Administration Dates Next Due Tdap Tetanus diptheria acell ular pertussis (Boostrix; Adacel) 7yo and older 04/22/2023 Surgical History Surgery Date Site/Laterality Comments TUBAL LIGATION PROCEDURE: HISTORICAL TUBAL LIGATION Medical History Medical History Date Comments Seasonal allergies 11/13/2021 DX:Seasonal a llergies Family History Medical History Relation Name Comments Hypertension Mother Asthma Sister Breast cancer Neg Hx Relation Name Status Comments Father Alive Maternal Grandfather Maternal Grandmother Mother Paternal Grandfather Paternal Grandmother Sister Social History Tobacco Use Types Packs/Day Years Used Date Smoking Tobacco: Never Smokeless Tobacco: Never Tobacco Cessation:Counseling Given: Not Answered Alcohol Use Standard Drinks/Week Comments Never 0 (1 standard drink = 0.6 oz pur e alcohol) Comments No Sex and Gender Information Value Date Recorded Sex Assigned at Not on file Legal Sex Female 12:27 AM EST Gender Identity Not on file Sexual Orientation Not on file Obstetrics History Para Term AB IAB SAB Ectopic Multiple Livin g Live Births 3 3 3 3 Date Outcome GA Total Labor Labor/2nd/3rd Weight Sex Type Anes PTL Britany A1 A5 Name Clin Term Term Term Last Filed Vital Signs Vital Sign Reading Time Taken Comments Blood Pressure 135/76 09/20/2024 4:33 PM EDT Pulse 112 09/20/2024 4:33 PM EDT Temperature 36.9 C (98.4 F) 09/20/2024 4:33 PM EDT Respiratory Rate 18 05/02/2024 3:24 PM EDT Oxygen Saturation 97% 09/20/2024 4:33 PM EDT Inhaled Oxygen Concentration - - Weight 65.6 kg (144 lb 9.6 oz) 09/13/2024 2:15 P M EDT Height 162.6 cm (5' 4 ) 08/04/2024 3:44 PM EDT Body Mass Index 24.82 08/04/2024 3:44 PM EDT Plan of Treatment Upcoming Encounters Date Type Department Care Team (Late st Contact Info) Description 11/03/2024 3:00 PM EDT Consult Vascular Surgery - [place] [address] [facility] [address] [place] [address] Leiva-Gabriela Mattson MD [address] [place] [address] Health Maintenance Due Date Last Done Comments Hepatitis B Vaccines (1 of 3 - 19+ 3-dose series) 1985 Cervical Cancer Screening: Pap Smear 04/26/1987 Pneumococcal Vaccine: 50+ Years (1 of 1 - PCV) 2016 Zoster Vaccines (1 of 2) 2016 Colorectal Cancer Screening: Colonoscopy 02/01/2022 HIV Screening 02/01/2022 Hepatitis C Screening 02/01/2022 Social Influencers of Health Screening 02/01/2022 COVID-19 Vaccine ( season) 2023 03/21/2021, 02/28/2021 Depression Screening 02/23/2024 Influenza Vaccine (#1) 2024 Hypertension/CHF/CAD Annual BMP Blood Test 04/07/2025 04/07/2024, 01/14/2024 Breast Cancer Screening 07/01/2026 07/02/19, 06/19/2023, 06/19/2023, Additional history exists Cholesterol Screening (Lipid Panel) 06/16/2029 06/16/2024 DTaP,Tdap,and Td Vaccines (2 - Td or Tdap) 04/21/2033 04/22/2023 HIB Vaccines Aged Out No longer eligi ble based on patient's age to complete this topic HPV Vaccines Aged Out No longer eligi ble based on patient's age to complete this topic Hepatitis A Vaccines Aged Out No long er eligible based on patient's age to complete this topic IPV Vaccines Aged Out No longer eligi ble based on patient's age to complete this topic MMR Vaccines Aged Out No longer eligi ble based on patient's age to complete this topic Meningococcal ACWY Vaccine Aged Out N o longer eligible based on patient's age to complete this topic Meningococcal B Vaccine Aged Out No l onger eligible based on patient's age to complete this topic RSV Immunization Patients Under 20 months Aged Out No longer eligible based on patient's age to complete this topic Varicella Vaccines Aged Out No longer eligible based on patient's age to complete this topic Goals Goal Patient Goal Type Associated Problems Recent Progress Patient-Stated? Author LTGs General No Oiron Leigh, PT Note: Pt will report no dizziness with functional mobility and daily activity x3 consecutive days - not met Procedures Procedure Name Priority Date/Time Associated Diagnosis Comments BORRELIA BURGDORFERI ANTIBODY Routine 09/13/2024 2:42 PM EDT Bilateral hand pain URIC ACID Routine 09/13/2024 2:42 PM EDT Bilateral hand pain NILESH IFA WITH TITER AND PATTERN Routine 09/13/2024 2:42 PM EDT Bilateral hand pain C-REACTIVE PROTEIN Routine 09/13/2024 2: 42 PM EDT Bilateral hand pain RHEUMATOID FACTOR Routine 09/13/2024 2:4 2 PM EDT Bilateral hand pain FERNANDEZ URINE CULTURE TUBE Routine 08/04/2024 4:31 PM EDT Frequent UTI URINALYSIS WITH REFLEX MICROSCOPIC AND CULTURE Routine 08/04/2024 4:31 PM EDT Frequent UTI URINALYSIS WITH REFLEX MICROSCOPIC AND CULTURE Routine 08/04/2024 4:31 PM EDT Frequent UTI CULTURE URINE Routine 08/04/2024 4:31 PM EDT Frequent UTI XR CHEST 2 VIEWS Routine 08/04/2024 4:05 PM EDT Wheezing SOB (shortness of breath) MG MAMMO DIGITAL SCREENING W MARK ANTHONY BILAT Routine 07/01/2024 1:12 PM EDT Encounter for screening mammogram for breast cancer LIPID PANEL WITH REFLEX TO DIRECT LDL Routine 06/16/2024 4:40 PM EDT Screening, lipid BASIC METABOLIC PANEL Routine 04/07/2024 10:33 AM EST Dizziness from Last 3 Months or Most Recently Relevant to Health Maintenance Results * NILESH IFA with titer and pattern (09/13/2024 2:42 PM EDT) NILESH Negative Negative 09/14/2024 1:19 PM EDT [facility] ([facility]) [facility] Blood Venous blood specimen / Unknown Venipuncture / Unknown 09/13/2024 2:42 PM EDT 09/13/2024 2:42 PM EDT us Ese Guerrier NP LAB BLOOD ORDERABLES Final Resul t [facility] [address] [place] [address], * Borrelia burgdorferi antibody (09/13/2024 2:42 PM EDT) [facility] Lyme Ab Negative Negative LAB CHEMISTRY METHOD 09/14/2024 8:20 AM EDT [facility] Comment: No laboratory evidence of infection with B. burgdorferi (Lyme disease). Negative results may occur in patients recently infected (<=14 days) with B. burgdorferi. If recent infection is suspected, repeat testing on a new sample collected in 7- 14 days is recommended. Blood Venous blood specimen / Unknown Venipuncture / Unknown 09/13/2024 2:42 PM EDT 09/13/2024 2:42 PM EDT us Ese Guerrier NP LAB BLOOD ORDERABLES Final Resul t Performing Organization Address [place]/[facility]/ZIP Co de Phone Number [facility] [address] [place] [address], [place] [phone] * Rheumatoid factor (09/13/2024 2:42 PM EDT) [facility] Rheumatoid Factor <10.0 <15.0 I Unit/mL LAB CHEMISTRY METHOD 09/13/2024 7:03 PM EDT [facility] Blood Venous blood specimen / Unknown Venipuncture / Unknown 09/13/2024 2:42 PM EDT 09/13/2024 2:42 PM EDT us Ese Guerrier NP LAB BLOOD ORDERABLES Final Resul t Performing Organization Address City/[facility]/ZIP Co de Phone Number [facility] [address] [place] [address], [place] [phone] * (ABNORMAL) C-reactive protein (09/13/2024 2:42 PM EDT) [facility] C-Reactive Protein 1.46(H) <=0.50 mg/dL LAB CHEMISTRY METHOD 09/13/2024 7:03 PM EDT [facility] Blood Venous blood specimen / Unknown Venipuncture / Unknown 09/13/2024 2:42 PM EDT 09/13/2024 2:42 PM EDT us Ese Guerrier NP LAB BLOOD ORDERABLES Final Resul t Performing Organization Address City/[facility]/ZIP Co de Phone Number [facility] [address] [place] [address], [place] [phone] * Uric acid (09/13/2024 2:42 PM EDT) [facility] Uric Acid 3.2 3.1 - 7.8 mg/dL LAB CHEMISTRY METHOD 09/13/2024 7:03 PM EDT [facility] Blood Venous blood specimen / Unknown Venipuncture / Unknown 09/13/2024 2:42 PM EDT 09/13/2024 2:42 PM EDT us Ese Guerrier NP LAB BLOOD ORDERABLES Final Resul t Performing Organization Address [place]/[facility] Co de Phone Number [facility] [address] [place] [address], [place] [phone] * (ABNORMAL) Urinalysis with reflex microscopic and culture (08/04/2024 4:31 PM EDT) [facility] Specific [place] Urine 1.032(H) 1.003 - 1.030 LAB URINALYSIS - AUTOMATED METHOD 08/04/2024 7:33 PM EDT [facility] pH, Urine 6.5 5.0 - 8.0 pH LAB URINALYSIS - AUTOMATED METHOD 08/04/2024 7:33 PM EDT [facility] Leukocytes, Urine Small(A) Negative LAB URINALYSIS - AUTOMATED METHOD 08/04/2024 7:33 PM EDT [facility] Nitrite, Urine Negative Negative LAB URINALYSIS - AUTOMATED METHOD 08/04/2024 7:33 PM [facility] Protein, Urine Trace <=Trace mg/dL LAB URINALYSIS - AUTOMATED METHOD 08/04/2024 7:33 PM [facility] Glucose, Urine Negative Negative mg/dL LAB URINALYSIS - AUTOMATED METHOD 08/04/2024 7:33 PM [facility] Ketones, Urine Trace(A) Negative mg/dL LAB URINALYSIS - AUTOMATED METHOD 08/04/2024 7:33 PM [facility] Urobilinogen, Urine 1.0 0.2 - 1.0 mg/dL LAB URINALYSIS - AUTOMATED METHOD 08/04/2024 7:33 PM [facility] Bilirubin, Urine Negative Negative LAB URINALYSIS - AUTOMATED METHOD 08/04/2024 7:33 PM [facility] Blood, Urine Negative Negative LAB URINALYSIS - AUTOMATED METHOD 08/04/2024 7:33 PM [facility] RBC, Urine 4.3(H) 0 - 4 /HPF LAB URINALYSIS - AUTOMATED METHOD 08/04/2024 7:33 PM [facility] WBC, Urine 6.8(H) 0 - 4 /HPF LAB URINALYSIS - AUTOMATED METHOD 08/04/2024 7:33 PM [facility] Squamous Epithelial, Urine >100(H) 0 - 60 /LPF LAB URINALYSIS - AUTOMATED METHOD 08/04/2024 7:33 PM [facility] Bacteria, Urine Negative Negative /HPF LAB URINALYSIS - AUTOMATED METHOD 08/04/2024 7:33 PM [facility] Hyaline Casts, Urine 2.8 0 - 3 /LPF LAB URINALYSIS - AUTOMATED METHOD 08/04/2024 7:33 PM [facility] Urine Urine specimen obtained by clean catch procedure / Unknown Non-blood Collection / Unknown 08/04/2024 4:31 PM EDT 08/04/2024 4:31 PM EDT [facility] LAB URINE ORDERABLES Final Resu lt Performing Organization Address City/[facility]/ZIP Co de Phone Number [facility] [address] [place] [address], [place] [phone] * Fernandez urine culture tube (08/04/2024 4:31 PM EDT) Pathologist [facility] Extra Tube Hold for add-ons. 08/04/2024 7:01 PM EDT [facility] Comment:Auto resulted. Urine Urine specimen obtained by clean catch procedure / Unknown Non-blood Collection / Unknown 08/04/2024 4:31 PM EDT 08/04/2024 4:31 PM EDT [facility] URINE ORDERABLES Final Resu lt Performing Organization Address [place]/[facility] Co de Phone Number [facility] [address] [place] [address], [place] [phone] * Culture urine (08/04/2024 4:31 PM EDT) Pathologist [facility] Culture, Urine 50,000-99,000 CFU/mL Mixed bacterial morphotypes present suggestive of possible contamination during collection. Suggest appropriate recollection if clinically indicated. 08/05/2024 11:34 AM EDT [facility] Urine Urine specimen obtained by clean catch procedure / Unknown Non-blood Collection / Unknown 08/04/2024 4:31 PM EDT 08/04/2024 7:33 PM EDT [facility] MICROBIOLOGY - GENERAL ORDE RABLES Final Result Performing Organization Address [place]/[facility]/ZIP Co de Phone Number [facility] [address] [place] [address], [place] [phone] * XR Chest 2 Views (08/04/2024 4:05 PM EDT) Anatomical Region Laterality Modality Body Radiographic Dunia ging 08/04/2024 4:17 PM EDT Impressions 08/04/2024 4:33 PM EDT No acute pulmonary pathology. -------- FINAL REPORT -------- Dictated By: Tawny Serra Dictated Date: 08/04/2024 16:17 ET Assigned Physician: Tawny Serra Reviewed and Electronically Signed By: Tawny Serra Signed Date: 08/04/2024 16:33 ET Workstation ID: [id number] Transcribed By: Self Edit Transcribed Date: 08/04/2024 16:17 ET Narrative 08/04/2024 4:33 PM EDT CHEST, TWO VIEWS HISTORY: Wheezing. Shortness of breath. . TECHNIQUE: Frontal and lateral views of the chest. PRIOR: None. FINDINGS: The lungs are clear. No pleural effusion is seen. No pneumothorax is seen. The cardiac diameter is within normal limits. No acute or aggressive appearing bony abnormalities are seen. There is mild curvature of the spine. Procedure Note Tawny Serra MD - 08/04/2024 CHEST, TWO VIEWS HISTORY: Wheezing. Shortness of breath. . TECHNIQUE: Frontal and lateral views of the chest. PRIOR: None. FINDINGS: The lungs are clear. No pleural effusion is seen. No pneumothorax is seen. The cardiac diameter is within normal limits. No acute or aggressive appearing bony abnormalities are seen. There ismild curvature of the spine. IMPRESSION: No acute pulmonary pathology. -------- FINAL REPORT -------- Dictated By: Tawny Serra Dictated Date: 08/04/2024 16:17 ET Assigned Physician: Tawny Serra Reviewed and Electronically Signed By: Tawny Serra Signed Date: 08/04/2024 16:33 ET Workstation ID: [id number] Transcribed By: Self Edit Transcribed Date: 08/04/2024 16:17 ET us Vandana Guzman NP IMG XR PROCEDURES Final Result * MG Mammo Digital Screening w Mark Anthony bilat (07/01/2024 1:12 PM EDT) Anatomical Region Laterality Modality Breast Bilateral Mammography 07/03/2024 4:30 PM EDT Impressions 07/03/2024 4:35 PM EDT 1. No mammographic evidence of malignancy 2. Scattered fibroglandular tissue BI-RADS CATEGORY: 2 - BENIGN RECOMMENDATION: Screening bilateral mammogram is recommended in 1 year. Mammo Location: [facility], [address] [place] [address], [id number], . -------- FINAL REPORT -------- Dictated By: Marli Mtz Dictated Date: 07/03/2024 16:30 ET Assigned Physician: Marli Mtz Reviewed and Electronically Signed By: Marli Mtz Signed Date: 07/03/2024 16:35 ET Workstation ID: [id number] Transcribed By: Self Edit Transcribed Date: 07/03/2024 16:30 ET Narrative 07/03/2024 4:35 PM EDT A BILATERAL DIGITAL 3D SCREENING MAMMOGRAPHY HISTORY: Routine screening. No family history of breast cancer. COMPARISON: Multiple priors dating back to 05/23/2022 Technique: Bilateral full field digital mammography (3D) was performed using standard CC and MLO projections CAD was used to evaluate this mammogram. FINDINGS: Right: No suspicious masses, groups of microcalcification or areas of architectural distortion identified. Stable typically benign parenchymal asymmetries. Left: No suspicious masses, groups of microcalcification or areas of architectural distortion identified. Stable typically benign parenchymal asymmetries. BREAST DENSITY: B - There are scattered areas of fibroglandular density. Procedure Note Marli Mtz MD - 07/03/2024 A BILATERAL DIGITAL 3D SCREENING MAMMOGRAPHY HISTORY: Routine screening. No family history of breast cancer. COMPARISON: Multiple priors dating back to 05/23/2022 Technique: Bilateral full field digital mammography (3D) was performedusing standard CC and MLO projections CAD was used to evaluate this mammogram. FINDINGS: Right: No suspicious masses, groups of microcalcification or areas ofarchitectural distortion identified. Stable typically benign parenchymalasymmetries. Left: No suspicious masses, groups of microcalcification or areas ofarchitectural distortion identified. Stable typically benign parenchymalasymmetries. BREAST DENSITY: B - There are scattered areas of fibroglandular density. IMPRESSION: 1. No mammographic evidence of malignancy 2. Scattered fibroglandular tissue BI-RADS CATEGORY: 2 - BENIGN RECOMMENDATION: Screening bilateral mammogram is recommended in 1 year. Mammo Location: [facility], [address] [place] [address], [id number], . -------- FINAL REPORT -------- Dictated By: Marli Mtz Dictated Date: 07/03/2024 16:30 ET Assigned Physician: Marli Mtz Reviewed and Electronically Signed By: Marli Mtz Signed Date: 07/03/2024 16:35 ET Workstation ID: [id number] Transcribed By: Self Edit Transcribed Date: 07/03/2024 16:30 ET Suresh Decker MD IMG BI PROCEDURES Final Result * (ABNORMAL) Lipid panel with reflex to direct LDL (06/16/2024 4:40 PM EDT) Cholesterol 180 0 - 200 mg/dL LAB CHEMISTRY METHOD 06/16/2024 7:04 PM [facility] Triglycerides 63 0 - 150 mg/dL LAB CHEMISTRY METHOD 06/16/2024 7:04 PM [facility] HDL 54 >=40 mg/dL LAB CHEMISTRY METHOD 06/16/2024 7:04 PM [facility] LDL Calculated 113(H) 0 - 100 mg/dL LAB CHEMISTRY METHOD 06/16/2024 7:04 PM [facility] VLDL Cholesterol [place] 12.6 mg/dL LAB CHEMISTRY METHOD 06/16/2024 7:04 PM [facility] Non HDL Chol. (LDL+VLDL) 126 <145 mg/dL LAB CHEMISTRY METHOD 06/16/2024 7:04 PM [facility] Chol/HDL Ratio 3.3 0.0 - 4.4 LAB CHEMISTRY METHOD 06/16/2024 7:04 PM EDT [facility] Blood Venous blood specimen / Unknown Venipuncture / Unknown 06/16/2024 4:40 PM EDT 06/16/2024 4:40 PM EDT us Suresh Decker MD LAB BLOOD ORDERABLES Final Resu lt [facility] [address] [place] [address], [place] [phone] * (ABNORMAL) Basic metabolic panel (04/07/2024 10:33 AM EST) Sodium 143 133 - 145 mmol/L LAB CHEMISTRY METHOD 04/07/2024 3:24 PM [facility] Potassium 3.5 3.5 - 5.5 mmol/L LAB CHEMISTRY METHOD 04/07/2024 3:24 PM [facility] Chloride 115(H) 96 - 110 mmol/L LAB CHEMISTRY METHOD 04/07/2024 3:24 PM [facility] CO2 24 21 - 32 mmol/L LAB CHEMISTRY METHOD 04/07/2024 3:24 PM [facility] Anion Gap 4 3 - 11 LAB CHEMISTRY METHOD 04/07/2024 3:24 PM [facility] Glucose 100 70 - 100 mg/dL LAB CHEMISTRY METHOD 04/07/2024 3:24 PM [facility] BUN 18 5 - 25 mg/dL LAB CHEMISTRY METHOD 04/07/2024 3:24 PM [facility] Comment:Results verified by repeat testing Creatinine 0.72 0.50 - 1.10 mg/dL LAB CHEMISTRY METHOD 04/07/2024 3:24 PM [facility] eGFR 98 >=60 mL/min/1. 73m2 LAB CHEMISTRY METHOD 04/07/2024 3:24 PM EST [facility] Comment:Calculation based on the Chronic Kidney Disease Epidemiology Collaboration (CKD-EPI) equation refit without adjustment for race. BUN/Creatinine Ratio 25.0 LAB CHEMISTRY METHOD 04/07/2024 3:24 PM [facility] Calcium 8.9 8.5 - 10.5 mg/dL LAB CHEMISTRY METHOD 04/07/2024 3:24 PM [facility] Blood Venous blood specimen / Unknown Venipuncture / Unknown 04/07/2024 10:33 AM EST 04/07/2024 10:33 AM EST us Armaan Campbell NP LAB BLOOD ORDERABLES Final Res ult [facility] [address] [place] [address], from Last 3 Months or Most Recently Relevant to Health Maintenance Insurance [facility] MEDICAID - [place] Care Teams Graphic Artist Relationship Specialty Start Date End Date Suresh Decker MD [address] [place] [address] [place] [address] PCP - General Internal Medicine 12/24/23
--- NOTE | 2024-09-25 16:10 | A.OFFVIS_ITS ---
Intake Visit Reasons: f/u Allergies No Known Allergies Allergy (Verified 09/18/24 09:12) HPI Comments Details: 59 years old woman with chronic anxiety, migraines, and dizziness. Exact reason for dizziness was unclear. She had an EEG with minor abnormality. With amitryptiline, she was feeling little better but symptoms were still happening. With amitriptyline she was feeling better and was here after 24 hour EEG. [facility] Medical History (Updated 09/25/24 @ 16:15 by Edinson Medina MD) Migraine Review of Systems Const Details: Constitutional:?No fever, chills, fatigue, weight loss, or night sweats. HEENT:?No headache, vision changes, hearing loss, nasal congestion, sore throat. Neurological:?No dizziness, syncope, seizures, numbness, tingling, weakness, tremors, memory loss. Psychiatric:?No anxiety, depression, mood swings, sleep disturbance, or hallucinations. Endocrine:?No heat/cold intolerance, polydipsia, polyuria, or hair/skin changes. Hematologic/Lymphatic:?No easy bruising, bleeding, or lymphadenopathy. Integumentary (Skin):?No rash, lesions, itching, or color changes. ? Physical Exam Neuro Other: Mental Status: Alert and oriented to person, place, and time. Normal attention. Normal spontaneous speech, fluency, and comprehension. No obvious issues with mood and memory. Affect is appropriate. Cranial Nerves: CN II: Visual bañuelos full to confrontation, visual acuity intact. CN III, IV, : Pupils equal, round, reactive to light and accommodation. Extraocular movements are normal. CN V: Facial sensation is normal. CN VII: Facial movements symmetrical. CN VIII: Hearing intact to bedside conversation is normal. CN IX, X: Palate elevates symmetrically. CN XI: Shoulder shrug and head turn symmetrical. CN XII: Tongue midline without atrophy or fasciculations. Extrapyramidal: Full facial expressions and blinking. No rigidity. Movements are appropriate with no tremor or abnormality. Speech: Normal; no dysarthria or tremor. Assessment & Plan Assessment & Plan (1) Migraine: Comment: Meds tried: Topiramate, propranalol, verapamil, Depakote EEG at off in 2024: Mild left temp sharps MRI brain WO at [facility] in Jan 2024: Mild MVD (reported) Code(s): G43.909 - Migraine, unspecified, not intractable, without status migrainosus Category: Medical Qualifiers: Migraine type: migraine (< 15 days per month) without aura Status migrainosus presence: without status migrainosus Intractability: not intractable Qualified Code(s): G43.009 - Migraine without aura, not intractable, without status migrainosus (2) Dizziness: Code(s): R42 - Dizziness and giddiness Category: Medical Plan Impression: 1. Migraine headaches 2. Nonspecific dizziness that might be migrainous 3. Mildly abnormal EEG for which another ambulatory EEG was done. Results from [facility] were pending. Recommendation: 1. Continue amitriptyline 50 mg at night, which according to her was helping. 2. Will follow-up with [facility] EEG Medications: Refilled amitriptyline 50 mg (2 x 25 mg) PO BEDTIME 180 tabs 0RF Coding Level of Care Code Est Pt Level 4 (32489) Diagnoses Migraine without aura and without status migrainosus, not intractable G43.009 Migraine type: migraine (< 15 days per month) without aura Status migrainosus presence: without status migrainosus Intractability: not intractable Dizziness R42
== END 2024-09-25 16:28 | disposition home or self-care (01) ==
LOC: HO.HSM 15:34
PROVIDERS: PCP Internal Medicine; Visit Provider Psychiatry & Neurology Neurology
DX: G43.009 Migraine without aura, not intractable, without status migrainosus (principal); R42 Dizziness and giddiness
CPT/HCPCS: 99214

== ENCOUNTER 2025-01-08 14:52 | Outpatient (AMB) | payer BC, MEDICAID, SELFPAY ==
--- NOTE | 2025-01-08 15:05 | A.OFFVIS_ITS ---
Intake Visit Reasons: 3m/ Dizziness Allergies No Known Allergies Allergy (Verified 09/18/24 09:12) HPI Comments Details: The patient is a 59-year-old female presenting with chronic headaches and psychological distress. She reports experiencing a sensation of heaviness and compression in her head, with occasional headaches manifesting on one side. These headaches occur sporadically throughout the day, and she also reports blurred vision. Despite a medication regimen prescribed by her psychiatrist?including olanzapine, 'well of vaccine' (likely Venlafaxine), and 'vatilate'?the symptoms persist. Blood tests and imaging studies such as a brain MRI and EEG have shown no abnormalities, suggesting her symptoms may be more attributed to psychological stress rather than a neurological disorder. Her ongoing psychiatric care for depression involves taking amitriptyline at night, which has not fully alleviated her symptoms. She maintains regular consultations with her psychiatrist as part of her treatment plan. [facility] Medical History (Updated 01/08/25 @ 15:11 by Edinson Medina MD) Migraine Review of Systems Narrative - Neurological: Reports headaches, pressure in the head; Denies worsening - Psychiatric: Reports psychological stress, depression - Ophthalmologic: Reports blurry vision - General: Denies changes in headache severity Physical Exam Neuro Other: Mental Status: Alert and oriented to person, place, and time. Normal attention. Normal spontaneous speech, fluency, and comprehension. Cranial Nerves: CN II: Visual bañuelos full to confrontation, visual acuity intact. CN III, IV, : Pupils equal, round, reactive to light and accommodation. Extraocular movements are normal. CN V: Facial sensation is normal. CN VII: Facial movements symmetrical. CN VIII: Hearing intact to bedside conversation is normal. CN IX, X: Palate elevates symmetrically. CN XI: Shoulder shrug and head turn symmetrical. CN XII: Tongue midline without atrophy or fasciculations. Extrapyramidal: Full facial expressions and blinking. No rigidity. Movements are appropriate with no tremor or abnormality. Speech: Normal; no dysarthria or tremor. Assessment & Plan Assessment & Plan (1) Migraine: Comment: Meds tried: Topiramate, propranolol, verapamil, Depakote, venlafaxine, amitryptiline 24 hr EEG at [facility] in 2024: WNL EEG at off in 2024: Mild left temp sharps MRI brain WO at [facility] in Jan 2024: Mild MVD (reported) Code(s): G43.909 - Migraine, unspecified, not intractable, without status migrainosus Category: Medical Qualifiers: Migraine type: migraine (< 15 days per month) without aura Status migrainosus presence: without status migrainosus Intractability: not intractable Qualified Code(s): G43.009 - Migraine without aura, not intractab le, without status migrainosus (2) Dizziness: Code(s): R42 - Dizziness and giddiness Category: Medical Plan Impression: 1. Migraine headaches 2. Nonspecific dizziness that is likely due to pscyhiatric disease Recommendation: The type of dizziness she reported, pressure-like feeling present 24 hours a day with no significant headaches in with no physical reason found, is more due to psychological disease than neurological. She was advised to continue her care with psychiatrist. Coding Level of Care Code Est Pt Level 3 (97678) Diagnoses Migraine without aura and without status migrainosus, not intractable G43.009 Migraine type: migraine (< 15 days per month) without aura Status migrainosus presence: without status migrainosus Intractability: not intractable Dizziness R42
== END 2025-01-08 15:43 | disposition home or self-care (01) ==
LOC: HO.HSM 14:52
PROVIDERS: PCP Internal Medicine; Visit Provider Psychiatry & Neurology Neurology
DX: G43.009 Migraine without aura, not intractable, without status migrainosus (principal); R42 Dizziness and giddiness
CPT/HCPCS: 99213